=== PATIENT | female | born 1955 | race Caucasian/White ===

== ENCOUNTER 2020-12-09 06:37 | Day surgery (SDC) | payer OTHER ==
[2020-12-06 12:16] LABS: Absolute Lymphocytes (CBC) 1.4 K/uL (0.7-4.9); Basophils % 1.5 % (0-1.3); Hematocrit 37.2 % (36.0-45.0); Lymphocytes % 27.7 % (15.3-44.8); MPV 8.1 fL (7.6-11.3); RBC Red Blood Cell Count 4.09 M/uL (3.86-4.86)
[2020-12-06 12:30] LABS: BUN Blood Urea Nitrogen 18 mg/dL (7-18); Bicarbonate 28 mmol/L (21-32); Glucose Level 98 mg/dL (74-106); Potassium 4.8 mmol/L (3.5-5.1); Sodium Level 137 mmol/L (136-145)
--- NOTE | 2020-12-06 12:47 | RAD REPORT ---
EXAM DESCRIPTION: RAD - Chest Pa And Lat (2 Views) - 12/06/2020 12:41 pm CLINICAL HISTORY: pre op COMPARISON: Chest Single View dated 08/02/2015; CHEST SINGLE VIEW dated 08/09/2014 FINDINGS: No evidence of edema or pneumonia. The heart size is within normal limits.No acute osseous abnormality. Chronic blunting of the right costophrenic angle. Apical scarring. IMPRESSION: No acute cardiopulmonary disease.
--- NOTE | 2020-12-07 16:29 | EKG ---
Test Date: 2020-12-06 Test Time: 11:13:04 Exterior Interior Specialist: TG MEASUREMENT RESULTS: Intervals: Rate: 66 OR: 118 QRSD: 112 QT: 416 QTc: 436 Secretary: P: 19 OR: 118 QRS: -40 T: 183 INTERPRETIVE STATEMENTS: Sinus rhythm with premature supraventricular complexes Left axis deviation Left ventricular hypertrophy with repolarization abnormality Anteroseptal infarct, age undetermined Abnormal ECG Compared to ECG 08/02/2015 23:41:20 Atrial premature complex(es) now present Left ventricular hypertrophy now present Early repolarization now present Atrial fibrillation no longer present Myocardial infarct finding still present Electronically Signed On 12-07-20 16:24:25 CDT by Dominic Brasher
[2020-12-09] MEDS ORDERED: BUPIVACAINE 0.25% PF 10 ML VIAL ONE (07:11)
[2020-12-09] MEDS ORDERED: CIPROFLOXACIN 400mg IV 400 MG/200 ML BAG IV ONE (07:16)
[2020-12-09] MEDS ORDERED: Ringers Lactate 1,000 ML IV ONE (07:16)
[2020-12-09] MEDS ORDERED: BUPIVACAINE 0.5% PF 10 ML VIAL ONE (07:43)
[2020-12-09] MEDS ORDERED: LIDOCAINE 1% MPF 5 ML VIAL ONE (07:45)
[2020-12-09] MEDS ORDERED: MIDAZOLAM HCL 2 MG/2 ML INJ ONE ×3 (07:45→10:27)
[2020-12-09] MEDS ORDERED: FENTANYL CITR 100 MCG/2 ML ONE (07:45)
[2020-12-09] MEDS ORDERED: propofoL 200 MG/20 ML VIAL IV ONE ×2 (07:45→08:03)
[2020-12-09 09:12] VITALS: BP 128/74; TEMP 97; O2SAT 99
[2020-12-09] MEDS ORDERED: TRAMADOL 37.5mg/APAP 325mg PER TAB ONE (09:17)
--- NOTE | 2020-12-09 13:41 | OP ---
Date of Procedure: 12/09/2020 Surgeon: Brandon Ye MD Fundraising Sale Representative: HIRA Parekh. Preoperative Diagnosis: Melanoma in situ, right anterior chest wall. Postoperative Diagnosis: Melanoma in situ, right anterior chest wall. Procedure: Wide excision, right anterior chest wall melanoma in situ, 7 x 3 cm with layered closure. Estimated Blood Loss: Minimal. Specimen: Right anterior chest wall, melanoma in situ. Findings: Closest margin was 8 mm. Anesthesia: MAC. Complications: None. Disposition: The patient tolerated procedure in stable condition, taken to Recovery in good general condition. Operative Note: The patient was brought to the OR and placed in supine position. MAC anesthesia was begun. The patient was prepped and draped in usual sterile fashion. Lidocaine 1% infiltrated local ly. Then, a 15 blade was used to make a 7 x 3 cm incision around this 1 cm pleomorphic reddish lesio n on the anterior chest wall and then subcutaneous tissue was divided. Entire mass was excised and s ent to Pathology for margin check which was negative and closest one was 8 mm. Wound was irrigated. Bleeding was controlled with cautery and then flaps were created. Then 2-0 chromic was used to reap proximate the deep subcutaneous tissue. A 3-0 chromic was used to approximate the subcutaneous tissue and 5-0 nylon was used to close skin. Sterile dressing was applied. The patient was awakened and t aken to Recovery in good general condition. Discharge Note: The patient will go to day surgery and home when stable. Disposition: Home. Condition: Stable. Discharge Instructions: Resume home medications and diet. Activity as tolerated. No heavy lifting. Remove outer dressing in 2 days. Shower. Keep wound clean, dry. Dry gauze to wound daily. Ultra cet 1 tablet p.o. q.4 p.r.n. pain. Follow up in my office 1 week. Call for appointment. /MODL Voice ID: [id number] Report ID: [id number]
== END 2020-12-09 09:10 | disposition home or self-care (01) ==
LOC: OR 06:37
PROVIDERS: ATTEND Surgery
PROC: 0JB60ZZ Excision of Chest Subcutaneous Tissue and Fascia, Open Approach (ICD-10-PCS; principal; 2020-12-09 07:30)
DX: D03.59 Melanoma in situ of other part of trunk (principal); Z20.822 Contact with and (suspected) exposure to COVID-19
CPT/HCPCS: 93005; 85025; 80048; 36415; 88305; 71046; 11606; U0003; J2704 ×2; J2250 ×2; J3010; J7120; J0744

== ENCOUNTER 2021-03-27 12:25 | Inpatient (IN) | payer OTHER ==
--- OUTSIDE RECORDS SUMMARY | 2021-03-27 12:27 | XMS REPORT | Continuity of Care Document ---
:1955 Author Organization [facility] t Address [address] [place] [address] Care Team Providers Name Role Phone Wilfredo-Mbrosieo_A_AH Attending Clinician Unavailable Wilfredo-Mbayo_A_AH Admitting Clinician Unavailable Payers Payer Name Policy Type Policy Number Effective Date Expiration Date S sabrina [facility] [place] - [id number] [id number] [facility] (MEDICARE REPLACEMENT/ADVANT AGE - HMO) Problems This patient has no known problems. Allergies, Adverse Reactions, Alerts Allergy Allergy Status Severity Reaction(s) Onset Inactive Treating Comm ents Source Name Type Date Date Clinician hydrocod DA Active U 2017-04 [facility] one 2- [place] [facility] d [facility] hydrocod DA Active U 2017-04 [facility] one 05-03 [place] 00:[facility]: d [facility] Medications This patient has no known medications. Procedures This patient has no known procedures. Encounters Start End Encounter Admission Attending Care Care Encounter Source Date/Time Date/Time Type Type Clinicians Facility Department ID 2020-08-17 2020-08-17 Outpatient Wilfredo-Mbayo VFP VFP [phone] [facility] 11:30:00 11:30:00 _A_AH [id number] Family Practic e 2019-07-02 2019-07-02 Outpatient Wilfredo-Mbayo VFP VFP [phone] [facility] 11:28:00 11:28:00 _A_ [id number] Family Practic e 2019-07-02 2019-07-02 Outpatient Wilfredo-Mbayo VFP VFP [phone] [facility] 11:28:00 11:28:00 _A_AH [id number] Family Practic e Results Test Description Test Time Test Comments Results Result Sourc e Comments SCR MAMM BILATERAL 2018-10-15 - SCR MAMM BILATERAL AMY CAD DIGITAL 11:15:41 AMY CAD DIGITALBILATERAL DIGITAL SCREENING MAMMOGRAM 3D/2D WITH CAD: 10/13/2018CLINICAL: Asymptomatic. Digital breast tomosynthesis was performed in addition to routine CC and MLO views. Current mammographic images were evaluated by either a Simperium M-Vu or a Webspy ImageThe One-Page CompanyckREVENTIVE CAD (computer aided detection system). Comparison is made to exams dated 07/23/2017 mammogram - [facility], 02/17/2015 mammogram, and 01/24/2015 mammogram - [facility]. There are scattered fibroglandular tissues in both breasts. There are benign calcifications in the left breast. No suspicious mass, architectural distortion, malignant type calcification, or lymph node abnormality detected. Breast architecture is stable compared to prior exams.IMPRESSION: BENIGNThere is no mammographic evidence of malignancy. Resume annual screening mammography in one year. Rosita christensen/penrad:10/15/2018 11:15:41 Passenger Attendant: Daily Quarles , [facility] sent: BIRADS 1-2 Normal Mammogram BI-RADS: 2 Benign SCR MAMM BILATERAL 2018-10-15 AMY CAD DIGITAL 11:15:41 Name: Krissy : 1955 Sex: F - SCR MAMM BILATERAL AMY CAD DIGITALBILATERAL DIGITAL SCREENING MAMMOGRAM 3D/2D WITH CAD: 10/13/2018CLINICAL: Asymptomatic. Digital breast tomosynthesis was performed in addition to routine CC and MLO views. Current mammographic images were evaluated by either a Simperium M-Vu or a Webspy ImageChecker CAD (computer aided detection system). Comparison is made to exams dated 07/23/2017 mammogram - [facility], 02/17/2015 mammogram, and 01/24/2015 mammogram - [facility]. There are scattered fibroglandular tissues in both breasts. There are benign calcifications in the left breast. No suspicious mass, architectural distortion, malignant type calcification, or lymph node abnormality detected. Breast architecture is stable compared to prior exams.IMPRESSION: BENIGNThere is no mammographic evidence of malignancy. Resume annual screening mammography in one year. Rosita christensen/patrick:10/15/2018 11:15:41 Passenger Attendant: Daily Quarles , [facility] sent: BIRADS 1-2 Normal Mammogram BI-RADS: 2 Benign
[2021-03-27] MEDS ORDERED: NA CHLORIDE 0.9% 500 ML ONE ×2 (13:31→15:42)
--- NOTE | 2021-03-27 13:56 | RAD REPORT ---
EXAM DESCRIPTION: RAD - Shoulder Right 2 View - 03/27/2021 1:48 pm CLINICAL HISTORY: PAIN COMPARISON: No comparisons FINDINGS: Comminuted fracture involving the right proximal humerus. The fracture involves the surgic al neck and likely extends to the greater tuberosity. Right AC joint degenerative changes. Surgical c lips in the right upper quadrant. IMPRESSION: Mildly comminuted right proximal humerus fracture.
--- NOTE | 2021-03-27 13:58 | RAD REPORT ---
EXAM DESCRIPTION: RAD - Chest Single View - 03/27/2021 1:36 pm CLINICAL HISTORY: syncope COMPARISON: Chest Pa And Lat (2 Views) dated 12/06/2020; Chest Single View dated 08/02/2015; CHEST SIN GLE VIEW dated 08/09/2014 FINDINGS: Lines: None. Lungs: No evidence of edema or pneumonia. Pleural: No significant pleural effusions or pneumothorax. Cardiac: The heart size is within normal limits. Bones: Right proximal humerus fracture. Other: IMPRESSION: No acute cardiopulmonary disease.
--- NOTE | 2021-03-27 14:03 | RAD REPORT ---
EXAM DESCRIPTION: CT - CTHCSPWOC - 03/27/2021 1:40 pm CLINICAL HISTORY: Trauma, head and neck injury. PAIN COMPARISON: No comparisons TECHNIQUE: Axial 5 mm thick images of the head were obtained. Axial 2 mm thick images of the cervical spine were obtained with sagittal and coronal reconstruction images generated and reviewed. All CT scans are performed using dose optimization technique as appropriate and may include automated exposure control or mA/KV adjustment according to patient size. FINDINGS: CT HEAD WITHOUT CONTRAST: No acute hemorrhage, hydrocephalus or extra-axial collection is identified.No areas of brain edema or midline shift. The paranasal sinuses and mastoids are clear.The calvarium is intact. CT CERVICAL SPINE WITHOUT CONTRAST: No fracture or subluxation.No prevertebral soft tissues swelling is identified. Apical scarring. IMPRESSION: No acute intracranial or cervical spine findings.
[2021-03-27 14:08] LABS: Absolute Lymphocytes (CBC) 0.9 K/uL (0.7-4.9); Basophils % 0.4 % (0-1.3); Hematocrit 41.5 % (36.0-45.0); Lymphocytes % 8.9 % (15.3-44.8); MPV 8.4 fL (7.6-11.3); RBC Red Blood Cell Count 4.46 M/uL (3.86-4.86)
[2021-03-27 15:08] LABS: Protime INR 0.98
[2021-03-27 15:32] LABS: ALT/SGPT 98 U/L (12-78); AST/SGOT 65 U/L (15-37); Albumin 3.9 g/dL (3.4-5.0); Alkaline Phosphatase 78 U/L (45-117); BUN Blood Urea Nitrogen 34 mg/dL (7-18); Bicarbonate 25 mmol/L (21-32); Bilirubin Direct 0.2 mg/dL (0-0.2); Glucose Level 108 mg/dL (74-106); Magnesium 2.1 mg/dL (1.8-2.4); NT PRO-BNP 47 pg/mL (<125); Potassium 4.2 mmol/L (3.5-5.1); Protein, Total 7.8 g/dL (6.4-8.2); Sodium Level 141 mmol/L (136-145); Troponin (Emerg Dept Use Only) < 0.02 ng/mL (0.0-0.045)
[2021-03-27] MEDS ORDERED: ASPIRIN 81 MG CHEWABLE TABLET ONE (15:41)
[2021-03-27] MEDS ORDERED: CLOPIDOGREL 75 MG TABLET ONE (15:42)
[2021-03-27] MEDS ORDERED: FOLIC ACID 5 MG/ML VIAL ONE (15:43)
--- NOTE | 2021-03-27 16:19 | EDPHYS ---
Physician Documentation [facility] Name: Krissy Weller Age: 66 yrs Sex: Female : 1955 Arrival Date: 03/27/2021 Time: 12:26 Bed 8 Private MD: ED Physician Jordan Prado HPI: 03/27 15:23 This 66 yrs old Female presents to ER via Wheelchair with complaints of juan antonio Numbness, Syncope, Shoulder Injury. 15:23 The patient's problem is reported as paresthesias, in right upper extremity, in right juan antonio lower extremity. Onset: The symptoms/episode began/occurred at 10:00. Duration: The episode is continuous. Context: the episode(s) was witnessed, by no one, symptoms became apparent at 10:00. The symptoms are alleviated by nothing. The symptoms are aggravated by nothing. Associated signs and symptoms: The patient has no apparent associated signs or symptoms. Severity of symptoms: At their worst the symptoms were mild moderate in the emergency department the symptoms are unchanged. Patient's baseline: Neuro: alert and fully oriented. The patient has not experienced similar symptoms in the past. Historical: - Allergies: 12:40 HYDROCODONE; vg1 12:40 Codeine; vg1 - PMHx: 12:40 gastritis; Pancreatitis; vg1 - PSHx: 12:40 Appendectomy; Cholecystectomy; vg1 - Immunization history:: Client reports receiving the 2nd dose of the Covid vaccine. - Social history:: Smoking status: Patient denies any tobacco usage or history of. - Family history:: not pertinent. ROS: 15:23 Constitutional: Negative for fever, chills, and weight loss, Eyes: Negative for injury, juan antonio pain, redness, and discharge, ENT: Negative for injury, pain, and discharge, Neck: Negative for injury, pain, and swelling, Cardiovascular: Negative for chest pain, palpitations, and edema, Respiratory: Negative for shortness of breath, cough, wheezing, and pleuritic chest pain, Abdomen/GI: Negative for abdominal pain, nausea, vomiting, diarrhea, and constipation, Back: Negative for injury and pain, : Negative for injury, bleeding, discharge, and swelling, MS/Extremity: Negative for injury and deformity, Skin: Negative for injury, rash, and discoloration, Psych: Negative for depression, anxiety, suicide ideation, homicidal ideation, and hallucinations, Allergy/Immunology: Negative for hives, rash, and allergies, Endocrine: Negative for neck swelling, polydipsia, polyuria, polyphagia, and marked weight changes. 15:23 MS/extremity: Positive for decreased range of motion, pain, swelling, of the anterior aspect of right shoulder and posterior aspect of right shoulder. 15:23 Neuro: Positive for numbness, of the right arm and right leg. Exam: 15:23 Radiologist reports: negative juan antonio 15:23 Constitutional: This is a well developed, well nourished patient who is awake, alert, and in no acute distress. Head/Face: Normocephalic, atraumatic. Eyes: Pupils equal round and reactive to light, extra-ocular motions intact. Lids and lashes normal. Conjunctiva and sclera are non-icteric and not injected. Cornea within normal limits. Periorbital areas with no swelling, redness, or edema. ENT: Nares patent. No nasal discharge, no septal abnormalities noted. Tympanic membranes are normal and external auditory canals are clear. Oropharynx with no redness, swelling, or masses, exudates, or evidence of obstruction, uvula midline. Mucous membranes moist. Neck: Trachea midline, no thyromegaly or masses palpated, and no cervical lymphadenopathy. Supple, full range of motion without nuchal rigidity, or vertebral point tenderness. No Meningismus. Chest/axilla: Normal chest wall appearance and motion. Nontender with no deformity. No lesions are appreciated. Cardiovascular: Regular rate and rhythm with a normal S1 and S2. No gallops, murmurs, or rubs. Normal PMI, no JVD. No pulse deficits. Respiratory: Lungs have equal breath sounds bilaterally, clear to auscultation and percussion. No rales, rhonchi or wheezes noted. No increased work of breathing, no retractions or nasal flaring. Abdomen/GI: Soft, non-tender, with normal bowel sounds. No distension or tympany. No guarding or rebound. No evidence of tenderness throughout. Back: No spinal tenderness. No costovertebral tenderness. Full range of motion. Skin: Warm, dry with normal turgor. Normal color with no rashes, no lesions, and no evidence of cellulitis. Psych: Awake, alert, with orientation to person, place and time. Behavior, mood, and affect are within normal limits. 15:23 Musculoskeletal/extremity: ROM: limited active range of motion due to pain, limited passive range of motion due to pain, Circulation is intact in all extremities. Sensation intact. Compartment Syndrome exam of affected extremity: is normal. DVT Exam: no pain, no swelling, no tenderness, negative Homans' sign noted on exam, no appreciated bluish discoloration, no erythema, no increased warmth. 16:21 ECG was reviewed by the Attending Physician. [facility] Vital Signs: 12:31 BP 107 / 73; Pulse 115; Resp 16; Temp 97.0; Pulse Ox 100% ; Weight 70.31 kg; Height 5 vg1 ft. 3 in. (160.02 cm); Pain 8/10; 13:28 Pulse 106; Resp 16; Pulse Ox 97% on R/A; ll1 15:00 BP 123 / 81; Pulse 100; Resp 18; Pulse Ox 100% ; ll1 17:01 Pulse 99; Resp 16; Pulse Ox 100% ; ll1 18:37 BP 118 / 72; Pulse 78; Resp 20; Pulse Ox 97% on R/A; ll1 19:00 BP 118 / 72; Pulse 78; Resp 20; Pulse Ox 100% ; ll1 12:31 Body Mass Index 27.46 (70.31 kg, 160.02 cm) vg1 NIH Stroke Scale Scores: 18:45 NIHSS Score: 2 juan antonio Hallett Coma Score: 18:45 Eye Response: spontaneous(4). Verbal Response: oriented(5). Motor Response: obeys [facility] commands(6). Total: 15. MDM: 13:26 Patient medically screened. [facility] 15:38 Differential diagnosis: CVA, TIA, paralysis. Data reviewed: vital signs, nurses notes, [facility] lab test result(s), EKG, radiologic studies, CT scan, MRI, plain films. Data interpreted: youth nutritional monitor: rate is 106 beats/min, rhythm is regular, Pulse oximetry: on room air is 99 %. Test interpretation: by ED physician or midlevel provider: ECG, plain radiologic studies. Counseling: I had a detailed discussion with the patient and/or guardian regarding: the historical points, exam findings, and any diagnostic results supporting the discharge/admit diagnosis, lab results, radiology results, the need for further work-up and treatment in the hospital. 16:12 ED course: dr loli, no tpa, get cta head and neck, give keppra. juan antonio 18:47 Physician consultation: Jake Joseph MD and will see patient in inpatient room, not juan antonio a tpa candidate, cta folow up , if negative asprin plavix. 12 13:04 Order name: Basic Metabolic Panel 03/27 13:04 Order name: CBC with Diff 03/27 13:04 Order name: LFT's; Complete Time: 15:36 03/27 13:04 Order name: Magnesium; Complete Time: 15:36 03/27 13:04 Order name: NT PRO-BNP; Complete Time: 15:36 03/27 13:04 Order name: PT-INR; Complete Time: 15:13 03/27 13:04 Order name: Troponin (emerg Dept Use Only); Complete Time: 15:36 03/27 13:04 Order name: XRAY Chest (1 view); Complete Time: 14:30 03/27 13:05 Order name: Basic Metabolic Panel; Complete Time: 15:36 EDMS 03/27 13:05 Order name: CBC with Automated Diff; Complete Time: 14:30 EDMS 03/27 13:27 Order name: Shoulder Right (2 View) XRAY; Complete Time: 14:30 [facility] 03/27 13:27 Order name: CT Head C Spine; Complete Time: 14:30 [facility] 03/27 16:15 Order name: SARS-COV-2 RT PCR (Document "Date of Onset" if Symptomatic); Complete Time: [facility] 18:57 03/27 13:04 Order name: EKG; Complete Time: 13:05 03/27 13:04 Order name: Cardiac monitoring; Complete Time: 13:14 03/27 13:04 Order name: EKG - Nurse/Tech; Complete Time: 13:14 03/27 13:04 Order name: IV Saline Lock; Complete Time: 13:14 03/27 13:04 Order name: Labs collected and sent; Complete Time: 13:14 03/27 15:37 Order name: CT Head Angio; Complete Time: 18:57 [facility] 03/27 15:37 Order name: CT Neck Angio; Complete Time: 18:57 [facility] 03/27 16:14 Order name: Brain Wo Cont; Complete Time: 18:57 EDMI 03/27 13:04 Order name: O2 Per Protocol; Complete Time: 13:14 iw 03/27 13:04 Order name: O2 Sat Monitoring; Complete Time: 13:14 iw 03/27 15:36 Order name: Shoulder Immobilizer; Complete Time: 17:01 juan antonio EC:21 Rate is 98 beats/min. Rhythm is regular. QRS [place] is Normal. UT interval is normal. QRS juan antonio interval is normal. QT interval is normal. No Q waves. T waves are Normal. No ST changes noted. Clinical impression: NSR w/ Non-specific ST/T Changes and No evidence of ischemia. Interpreted by me. Reviewed by me. Administered Medications: 15:08 Drug: NS 0.9% 500 ml Route: IV; Rate: bolus; Site: left forearm; ll1 17:00 Follow up: Response: No adverse reaction; IV Status: Completed infusion; IV Intake: ll1 500ml 17:00 Drug: NS 0.9% 500 ml Route: IV; Rate: bolus; Site: left antecubital; ll1 18:38 Follow up: Response: No adverse reaction; IV Status: Completed infusion; IV Intake: ll1 500ml 17:00 Drug: foLIC Acid 1 mg Route: IVPB; Site: left antecubital; ll1 18:38 Follow up: Response: No adverse reaction; IV Status: Completed infusion; IV Intake: ll1 0.2ml 17:00 Drug: Aspirin Chewable Tablet 162 mg Route: PO; ll1 18:39 Follow up: Response: No adverse reaction ll1 17:00 Drug: PlaVIX (clopidogrel) 75 mg Route: PO; ll1 18:39 Follow up: Response: No adverse reaction ll1 17:10 Drug: Keppra (levETIRAcetam) 1000 mg Route: IV; Rate: per protocol; Site: left ll1 antecubital; 17:33 Follow up: Response: No adverse reaction; IV Status: Completed infusion; IV Intake: ll1 100ml 19:23 Drug: fentaNYL (PF) 50 mcg Route: IVP; Site: left forearm; as6 19:23 Drug: Zofran (Ondansetron) 4 mg Route: IVP; Site: left forearm; as6 Point of Care Testin:04 with blood work ll1 Ranges: Critical Glucose Levels:Adult <50 mg/dl or >400 mg/dl <40 mg/dl or >180 mg/dl Disposition Summary: 03/27/21 16:19 Hospitalization Ordered Hospitalization Status: Inpatient Admission juan antonio Provider: Trell Hitchcock cha Location: Telemetry/MedSurg (Inpatient) juan antonio Condition: Stable juan antonio Problem: new juan antonio Symptoms: have improved juan antonio Bed/Room Type: Standard juan antonio Room Assignment: 429(03/27/21 19:38) cg Diagnosis - Fall on same level, unspecified - syncope/seizure juan antonio - 2-part displaced fracture of surgical neck of right humerus juan antonio Forms: - Medication Reconciliation Form juan antonio - SBAR form juan antonio NIH Stroke Scale - NIH Stroke Score Date: 03/27/2021 Time: 18:45 Total Score = 2 1a. Level of Consciousness (LOC) - 0(Alert) 1b. Level of Consciousness (LOC) (Month \\T\\ Age) - 0(Both) 1c. LOC Commands (Open \\T\\ Closes Eyes/Arc Cutter Plasma Arc) - 0(Both) 2. Best Gaze (Lateral Gaze Paresis) - 0(Normal) 3. Visual Field Loss - 0(No visual loss) 4. Facial Palsy - 0(Normal) 5a. Left Arm: Motor (10-second hold) - 0(No drift) 5b. Right Arm: Motor (10-second hold) - 0(No drift) 6a. Left Leg: Motor (5-second hold - always test supine) - 0(No drift) 6b. Right Leg: Motor (5-second hold - always test supine) - 1(Drift) 7. Limb Ataxia (finger/nose \\T\\ heel/sanon - test with eyes open) - 0(Absent) 8. Sensory Loss (pinprick arms/legs/face) - 1(Mild to moderate loss) 9. Best Language: Aphasia (description/naming/reading) - 0(No aphasia) 10. Dysarthria (speech clarity - read or repeat words) - 0(Normal) 11. Extinction and Inattention (visual/tactile/auditory/spatial/personal) - 0(No abnormality) Initials: juan antonio Signatures: Dispatcher [employer] EDJordan Leone MD MD cha Williams, Irene, RN RN iw Garcia, Cindy, RN RN cg Garcia, Victoria, RN RN vg1 Bryan Cool RN RN ll1 Davin Jerez RN RN as6 Corrections: (The following items were deleted from the chart) 16:14 15:36 MR STROKE PROTOCOL+MRI.LOKI.ARNULFO ordered. EDMS EDMS 19:38 16:19 juan antonio kang
--- NOTE | 2021-03-27 16:19 | ER ---
Nurse's Notes [facility] Name: Krissy Weller Age: 66 yrs Sex: Female : 1955 Arrival Date: 03/27/2021 Time: 12:26 Bed 8 Private MD: Diagnosis: Fall on same level, unspecified-syncope/seizure;2-part displaced fracture of surgical neck of right humerus Presentation: 03/27 12:31 Chief complaint: Patient states: pt states "I walked to the kitchen and my right side vg1 felt numb and cold and I turned around and that's the last thing i remembered, then i found myself on the floor and wriggled my way to the front door" Pt states started to kick the front door when a neighbor heard and helped her up. States Right shoulder pain, unsure if hit head. Incident occurred around 1000 today. Coronavirus screen: Vaccine status: Patient reports receiving the 2nd dose of the covid vaccine. Ebola Screen: Patient negative for fever greater than or equal to 101.5 degrees Fahrenheit, and additional compatible Ebola Virus Disease symptoms. Initial Sepsis Screen: Does the patient meet any 2 criteria? No. Patient's initial sepsis screen is negative. Does the patient have a suspected source of infection? No. Patient's initial sepsis screen is negative. Risk Assessment: Do you want to hurt yourself or someone else? Patient reports no desire to harm self or others. Onset of symptoms was March 27, 2021 at 10:00. 12:31 Method Of Arrival: Wheelchair vg1 12:31 Acuity: RAIZA 3 vg1 Triage Assessment: 12:40 General: Appears in no apparent distress. uncomfortable, Behavior is calm, cooperative. vg1 Pain: Complains of pain in Right shoulder. Neuro: Level of Consciousness is awake, alert, obeys commands, Oriented to person, place, time, situation, Speech is normal, Facial symmetry appears normal, Reports headache. Historical: - Allergies: 12:40 HYDROCODONE; vg1 12:40 Codeine; vg1 - PMHx: 12:40 gastritis; Pancreatitis; vg1 - PSHx: 12:40 Appendectomy; Cholecystectomy; vg1 - Immunization history:: Client reports receiving the 2nd dose of the Covid vaccine. - Social history:: Smoking status: Patient denies any tobacco usage or history of. - Family history:: not pertinent. Screenin:48 Abuse screen: Denies threats or abuse. Nutritional screening: No deficits noted. ll1 Tuberculosis screening: No symptoms or risk factors identified. Fall Risk Fall in past 12 months (25 points). IV access (20 points). Gait- Weak (10 pts.). Total [place] Fall Scale indicates High Risk Score (45 or more points). Fall prevention measures have been instituted. Side Rails Up X 2 Placed Close to Nursing Station Frequent Obs/Assessments Occuring Family Present and informed to notify staff if the need to leave the bedside As available patient and family educated on Fall Prevention Program and Strategies. Assessment: 13:40 Reassessment: No changes from previously documented assessment. Patient and/or family ll1 updated on plan of care and expected duration. Pain level reassessed. Patient is alert, oriented x 3, equal unlabored respirations, skin warm/dry/pink. Neuro: Level of Consciousness is awake, alert, obeys commands, Oriented to person, place, time, situation, Appropriate for age Crossing Watchman are equal bilaterally Moves all extremities. Full function Speech is normal, Facial symmetry appears normal, Reports dizziness, headache. Cardiovascular: Heart tones S1 S2 Capillary refill < 3 seconds Clubbing of nail beds is absent JVD is absent Patient's skin is warm and dry. Rhythm is sinus tachycardia. Musculoskeletal: Circulation, motion, and sensation intact. Capillary refill < 3 seconds, Range of motion: limited in R shoulder. 14:40 Reassessment: No changes from previously documented assessment. Patient and/or family ll1 updated on plan of care and expected duration. Pain level reassessed. Patient is alert, oriented x 3, equal unlabored respirations, skin warm/dry/pink. 15:40 Reassessment: to CT and MRI via stretcher.. ll1 17:00 Reassessment: No changes from previously documented assessment. Patient and/or family ll1 updated on plan of care and expected duration. Pain level reassessed. Patient is alert, oriented x 3, equal unlabored respirations, skin warm/dry/pink. Back from MRI. 17:18 Musculoskeletal: Circulation, motion, and sensation intact. Capillary refill < 3 ll1 seconds, Range of motion: limited in R shoulder. 18:00 Reassessment: No changes from previously documented assessment. Patient and/or family ll1 updated on plan of care and expected duration. Pain level reassessed. Patient is alert, oriented x 3, equal unlabored respirations, skin warm/dry/pink. 19:00 Reassessment: No changes from previously documented assessment. Patient and/or family ll1 updated on plan of care and expected duration. Pain level reassessed. Patient is alert, oriented x 3, equal unlabored respirations, skin warm/dry/pink. 19:24 Reassessment: Patient and/or family updated on plan of care and expected duration. Pain as6 level reassessed. Patient is alert, oriented x 3, equal unlabored respirations, skin warm/dry/pink. General: Behavior is calm. Pain: Complains of pain in posterior aspect of right shoulder and anterior aspect of right shoulder Pain radiates to right arm Quality of pain is described as sharp. Vital Signs: 12:31 BP 107 / 73; Pulse 115; Resp 16; Temp 97.0; Pulse Ox 100% ; Weight 70.31 kg; Height 5 vg1 ft. 3 in. (160.02 cm); Pain 8/10; 13:28 Pulse 106; Resp 16; Pulse Ox 97% on R/A; ll1 15:00 BP 123 / 81; Pulse 100; Resp 18; Pulse Ox 100% ; ll1 17:01 Pulse 99; Resp 16; Pulse Ox 100% ; ll1 18:37 BP 118 / 72; Pulse 78; Resp 20; Pulse Ox 97% on R/A; ll1 19:00 BP 118 / 72; Pulse 78; Resp 20; Pulse Ox 100% ; ll1 12:31 Body Mass Index 27.46 (70.31 kg, 160.02 cm) vg1 Yury Coma Score: 18:45 Eye Response: spontaneous(4). Verbal Response: oriented(5). Motor Response: obeys [facility] commands(6). Total: 15. NIH Stroke Scale Scores: 18:45 NIHSS Score: 2 juan antonio ED Course: 12:26 Patient arrived in ED. am2 12:40 Triage completed. vg1 12:40 Arm band placed on. vg1 12:47 Bryan Cool, RN is Primary Nurse. ll1 12:48 Patient placed in an exam room, on a stretcher. ll1 12:48 Patient has correct armband on for positive identification. Bed in low position. Call ll1 light in reach. Side rails up X 1. manager monitoring on. Pulse ox on. NIBP on. 13:25 Jordan Prado MD is Attending Physician. juan antonio 13:25 Missed attempt(s): 22 gauge in left antecubital area. Bleeding controlled, band aid ll1 applied, catheter tip intact. 13:36 XRAY Chest (1 view) In Process Unspecified. EDMS 13:40 CT Head C Spine In Process Unspecified. EDMS 13:48 Shoulder Right (2 View) XRAY In Process Unspecified. EDMS 14:00 Inserted saline lock: 22 gauge in left forearm, using aseptic technique. Blood iw collected. 15:56 CT Head Angio In Process Unspecified. EDMS 15:56 CT Neck Angio In Process Unspecified. EDMS 16:16 Trell Hitchcock DO is Hospitalizing Provider. [facility] 16:43 Brain Wo Cont In Process Unspecified. EDMS 17:15 Shoulder immobilizer applied on right shoulder. ll1 Administered Medications: 15:08 Drug: NS 0.9% 500 ml Route: IV; Rate: bolus; Site: left forearm; ll1 17:00 Follow up: Response: No adverse reaction; IV Status: Completed infusion; IV Intake: ll1 500ml 17:00 Drug: NS 0.9% 500 ml Route: IV; Rate: bolus; Site: left antecubital; ll1 18:38 Follow up: Response: No adverse reaction; IV Status: Completed infusion; IV Intake: ll1 500ml 17:00 Drug: foLIC Acid 1 mg Route: IVPB; Site: left antecubital; ll1 18:38 Follow up: Response: No adverse reaction; IV Status: Completed infusion; IV Intake: ll1 0.2ml 17:00 Drug: Aspirin Chewable Tablet 162 mg Route: PO; ll1 18:39 Follow up: Response: No adverse reaction ll1 17:00 Drug: PlaVIX (clopidogrel) 75 mg Route: PO; ll1 18:39 Follow up: Response: No adverse reaction ll1 17:10 Drug: Keppra (levETIRAcetam) 1000 mg Route: IV; Rate: per protocol; Site: left ll1 antecubital; 17:33 Follow up: Response: No adverse reaction; IV Status: Completed infusion; IV Intake: ll1 100ml 19:23 Drug: fentaNYL (PF) 50 mcg Route: IVP; Site: left forearm; as6 19:23 Drug: Zofran (Ondansetron) 4 mg Route: IVP; Site: left forearm; as6 Point of Care Testin:04 with blood work ll1 Ranges: Intake: 17:00 IV: 500ml; Total: 500ml. ll1 17:33 IV: 100ml; Total: 600ml. ll1 18:38 IV: 500ml; Total: 1100ml. ll1 18:38 IV: 0ml; Total: 1100ml. ll1 Outcome: 16:19 Decision to Hospitalize by Provider. juan antonio 21:10 Patient left the ED. lp1 NIH Stroke Scale - NIH Stroke Score Date: 03/27/2021 Time: 18:45 Total Score = 2 1a. Level of Consciousness (LOC) - 0(Alert) 1b. Level of Consciousness (LOC) (Month \\T\\ Age) - 0(Both) 1c. LOC Commands (Open \\T\\ Closes Eyes/Product Marketing Coordinator) - 0(Both) 2. Best Gaze (Lateral Gaze Paresis) - 0(Normal) 3. Visual Field Loss - 0(No visual loss) 4. Facial Palsy - 0(Normal) 5a. Left Arm: Motor (10-second hold) - 0(No drift) 5b. Right Arm: Motor (10-second hold) - 0(No drift) 6a. Left Leg: Motor (5-second hold - always test supine) - 0(No drift) 6b. Right Leg: Motor (5-second hold - always test supine) - 1(Drift) 7. Limb Ataxia (finger/nose \\T\\ heel/sanon - test with eyes open) - 0(Absent) 8. Sensory Loss (pinprick arms/legs/face) - 1(Mild to moderate loss) 9. Best Language: Aphasia (description/naming/reading) - 0(No aphasia) 10. Dysarthria (speech clarity - read or repeat words) - 0(Normal) 11. Extinction and Inattention (visual/tactile/auditory/spatial/personal) - 0(No abnormality) Initials: juan antonio Signatures: Dispatcher [employer] EDJordan Leone MD MD cha Williams, Irene, RN RN iw Daily Paiz RN RN lp1 Paola Briscoe am2 Eun Campos RN RN vg1 Bryan Cool RN RN ll1 Davin Jerez, RN RN as6
[2021-03-27] MEDS ORDERED: levETIRAcetam 1,000 MG in NA CHLORIDE 0.9% 100 ML IV ONE (16:30)
--- NOTE | 2021-03-27 16:34 | RAD REPORT ---
EXAM DESCRIPTION: CT - Neck Angio - 03/27/2021 3:56 pm CLINICAL HISTORY: NUMBNESS COMPARISON: Head C Spine Mpr Wo Con dated 03/27/2021 TECHNIQUE: CT angiography of the neck vessels was performed with MIPs. All CT scans are performed using dose optimization technique as appropriate and may include automated exposure control or mA/KV adjustment according to patient size. FINDINGS: No significant flow abnormality is seen of the common carotid bilaterally. No significant stenosis is identified involving the cervical segments of both internal carotid arteri es. Normal flow is seen within both vertebral arteries. Venous contamination limits evaluation of the upp er portion of the cervical vertebral arteries. IMPRESSION: No significant flow abnormality of the neck vessels is identified. Note that the distal cervical portions of the vertebral artery is are obscured by streak artifact from the rather signific ant venous contamination.
--- NOTE | 2021-03-27 16:35 | RAD REPORT ---
EXAM DESCRIPTION: CT - Head angio - 03/27/2021 3:56 pm CLINICAL HISTORY: DIZZINESS COMPARISON: No comparisons TECHNIQUE: CT angiography of the head was performed with MIPs. All CT scans are performed using dose optimization technique as appropriate and may include automated exposure control or mA/KV adjustment according to patient size. FINDINGS: Anterior circulation: No aneurysm or large vessel occlusion. No hemodynamically significant stenosis. No arteriovenous malf ormation identified. Posterior circulation: No aneurysm or large vessel occlusion. No hemodynamically significant stenosis. No arteriovenous malf ormation identified. IMPRESSION: No significant flow abnormality is detected.
--- NOTE | 2021-03-27 16:55 | RAD REPORT ---
EXAM DESCRIPTION: MRI - Brain Wo Cont - 03/27/2021 4:43 pm CLINICAL HISTORY: HEMIPLEGIA COMPARISON: No comparisons TECHNIQUE: Sagittal T1-weighted images were obtained along with PD/heavily T2-weighted and T2-FLAIR images. Axial DWI and ADC mapping sequences were also obtained along with coronal heavily T2-weighted images were obtained. FINDINGS: No intracranial hemorrhage, mass or acute infarction. There is no edema or shift of midlin e structures. No extra-axial fluid collections. Signal voids are seen as a normal finding in the pedro r intracranial vessels. No significant white matter disease. Mastoid air cells and paranasal sinuses are clear. IMPRESSION: No acute intracranial abnormality. No evidence of acute infarct.
--- NOTE | 2021-03-27 17:29 | P.HP ---
Patient History Date of Service: 03/27/21 Primary Care Provider: Dr. Santos Reason for admission: Syncope, fall History of Present Illness: 66-year-old female reported headache this morning. Patient reports headaches at times. Patient had pain to the frontal area. She rated the pain about a 7 out of 10. She took some Tylenol and went to bed. When she got up around 10 AM she had to the kitchen for food. At which point the patient blacked out. She was on the ground for over 2 hours. She does not recall the events during this time period. She was brought into the ER for further evaluation. In the ER patient appears stable. Vital signs stable. CT head neck unremarkable. Chest x-ray unremarkable. X-ray of shoulder showed right proximal humerus fracture. Subsequent MRI without contrast of the head showed no acute CVA. Patient was started on IV Keppra. Patient admitted for treatment. Patient with history of melanoma, depression with anxiety and neuropathy. Patient reports no history of CVA or seizure. Allergies Cephalosporins Allergy (Verified 12/09/20 07:31) Anaphylaxis codeine Allergy (Verified 12/06/20 13:25) Nausea/Vomiting HYDROCODONE Allergy (Uncoded 12/06/20 13:25) Nausea/Vomiting Home medications list reviewed: Yes Home Medications: NK [No Home Meds] 12/06/20 - Past Medical/Surgical History Diabetic: No -: Pancreatitis -: Depression with anxiety -: Neuropathy -: Melanoma to the chest melanoma to the chest -: gall bladder -: bowel blockage -: pseudocyst of the pancreas -: Rt ear sx bone graph placed -: rt knee sx -: appendix sx Psychosocial/ Personal History: Patient lives at home - Family History Family History: Reviewed- Non-Contributory - Social History Smoking Status: Never smoker Alcohol use: No CD- Drugs: No Caffeine use: Yes Place of Residence: Home Review of Systems General: As per HPI Eyes: Unremarkable ENT: Unremarkable Respiratory: Unremarkable Cardiovascular: Unremarkable Gastrointestinal: Unremarkable Genitourinary: Unremarkable Musculoskeletal: As per HPI Integumentary: Unremarkable Neurological: Weakness, Numbness, As per HPI Lymphatics: Unremarkable Physical Examination - Studies Laboratory Data (last 24 hrs) 03/27/21 14:56: PT 11.3, INR 0.98 03/27/21 14:56: Sodium 141, Potassium 4.2, BUN 34 H, Creatinine 0.59, Glucose 108 H, Magnesium 2.1, Total Bilirubin 1.0, AST 65 H, ALT 98 H, Alkaline Phosphatase 78 03/27/21 14:00: WBC 10.60, Hgb 14.3, Hct 41.5, Plt Count 178 Assessment and Plan - Plan COVID: Pending CT head: COMPARISON: No comparisons TECHNIQUE: Axial 5 mm thick images of the head were obtained. Axial 2 mm thick images of the cervical spine were obtained with sagittal and coronal reconstruction images generated and reviewed. All CT scans are performed using dose optimization technique as appropriate and may include automated exposure control or mA/KV adjustment according to patient size. FINDINGS: CT HEAD WITHOUT CONTRAST: No acute hemorrhage, hydrocephalus or extra-axial collection is identified.No areas of brain edema or midline shift. The paranasal sinuses and mastoids are clear.The calvarium is intact. CT CERVICAL SPINE WITHOUT CONTRAST: No fracture or subluxation.No prevertebral soft tissues swelling is identified. Apical scarring. IMPRESSION: No acute intracranial or cervical spine findings. CTA head: COMPARISON: No comparisons TECHNIQUE: CT angiography of the head was performed with MIPs. All CT scans are performed using dose optimization technique as appropriate and may include automated exposure control or mA/KV adjustment according to patient size. FINDINGS: Anterior circulation: No aneurysm or large vessel occlusion. No hemodynamically significant stenosis. No arteriovenous malformation identified. Posterior circulation: No aneurysm or large vessel occlusion. No hemodynamically significant stenosis. No arteriovenous malformation identified. IMPRESSION: No significant flow abnormality is detected. CTA neck: COMPARISON: Head C Spine Mpr Wo Con dated 03/27/2021 TECHNIQUE: CT angiography of the neck vessels was performed with MIPs. All CT scans are performed using dose optimization technique as appropriate and may include automated exposure control or mA/KV adjustment according to patient size. FINDINGS: No significant flow abnormality is seen of the common carotid bilaterally. No significant stenosis is identified involving the cervical segments of both internal carotid arteries. Normal flow is seen within both vertebral arteries. Venous contamination limits evaluation of the upper portion of the cervical vertebral arteries. IMPRESSION: No significant flow abnormality of the neck vessels is identified. Note that the distal cervical portions of the vertebral artery is are obscured by streak artifact from the rather significant venous contamination. MRI without contrast head: COMPARISON: No comparisons TECHNIQUE: Sagittal T1-weighted images were obtained along with PD/heavily T2- weighted and T2-FLAIR images. Axial DWI and ADC mapping sequences were also obtained along with coronal heavily T2-weighted images were obtained. FINDINGS: No intracranial hemorrhage, mass or acute infarction. There is no edema or shift of midline structures. No extra-axial fluid collections. Signal voids are seen as a normal finding in the major intracranial vessels. No significant white matter disease. Mastoid air cells and paranasal sinuses are clear. IMPRESSION: No acute intracranial abnormality. No evidence of acute infarct. Shoulder x-ray: COMPARISON: No comparisons FINDINGS: Comminuted fracture involving the right proximal humerus. The fracture involves the surgical neck and likely extends to the greater tuberosity. Right AC joint degenerative changes. Surgical clips in the right upper quadrant. IMPRESSION: Mildly comminuted right proximal humerus fracture. Physical Exam: GENERAL: The patient is a well-developed, well-nourished, in no apparent distress. Alert and oriented x3. VITAL SIGNS: Reviewed HEENT: Head is normocephalic and atraumatic. Extraocular muscles are intact. Pupils are equal, round, and reactive to light and accommodation. Nares appeared normal. Mouth is well hydrated and without lesions. Mucous membranes are moist. NECK: Supple. No carotid bruits. No lymphadenopathy or thyromegaly. LUNGS: Clear to auscultation. No crackles or wheezes are heard. HEART: Regular rate and rhythm, no appreciable gallops, rubs, murmurs or extra heart sounds ABDOMEN: Soft, nontender, and nondistended. Positive bowel sounds. No hepatosplenomegaly was noted. EXTREMITIES: Patient with weakness to the right upper and lower extremity. Some swelling to the right shoulder. Difficulty with movement of the right and lower extremity. NEUROLOGIC: Some pain to the right shoulder. As above SKIN: Normal color, turgor and temperature. No ulcerations or rashes noted. Impression: Syncope likely secondary to seizure Right-sided weakness likely related to above Fall leading to mildly comminuted right proximal humerus fracture Depression with anxiety History of melanoma Neuropathy Elevated liver function Plan: Syncope likely secondary to seizure: Case discussed with neurology. Patient likely had seizure. Continue IV Keppra. Will monitor for falls. Fall precaution in place. Will monitor for seizure. Seizure precaution in place. MRI without contrast negative. Will need to obtain stroke protocol MRI to further evaluate. We will also obtain echocardiogram, carotid Doppler, and EEG. Physical therapy and Occupational Therapy to evaluate. Await further commendations from neurology. Possible home as early as tomorrow with home health versus rehab. Await recommendations by physical therapy. Continue aspirin, folic acid. Will monitor lab closely. Right-sided weakness likely related to above: This may be related to her seizure and fall. Continue with physical therapy recommendations. Will discuss further with neurology. Will obtain stroke protocol MRI to further evaluate. Fall leading to mildly comminuted right proximal humerus fracture: Shoulder immobilizer to be started. Will consult orthopedics for further recommendation. Depression with anxiety: Restart Paxil History of melanoma: Patient with recent history of melanoma removed from the chest. Neuropathy: Continue Elavil. Elevated liver function: We will check hepatitis panel. Will monitor lab closely. Code Status: Full Code DVT prophylaxis: Lovenox Advanced Care Planning-30 minutes: Anticipate home at discharge Discharge Plan: Home Plan to discharge in: 24 Hours - Advance Directives Does patient have a Living Will: No Does patient have a Durable POA for Healthcare: No - Code Status/Comfort Care Code Status Assessed: Yes (Full code) Time Spent Managing Pts Care (In Minutes): 55
[2021-03-27] MEDS ORDERED: ONDANSETRON 4 MG/2 ML VIAL ONE (19:18)
[2021-03-27] MEDS ORDERED: FENTANYL CITR 100 MCG/2 ML ONE (19:18)
[2021-03-27] MEDS ORDERED: ONDANSETRON 4 MG/2 ML VIAL IV PRN (20:16)
[2021-03-27] MEDS ORDERED: ACETAMINOPHEN 500 MG TAB PO PRN (20:16)
[2021-03-27 21:45] LABS: Creatine Phosphokinase 44 U/L (26-192); Troponin I < 0.02 ng/mL (0.0-0.045)
[2021-03-27 22:02] LABS: CKMB Creatine Kinase MB < 1.0 ng/mL (1.0-3.6)
[2021-03-27] MEDS: levETIRAcetam 500 MG in NA CHLORIDE 0.9% 100 ML IV SCH (23:07)
[2021-03-27] MEDS: AMITRIPTYLINE 50 MG TAB PO SCH (23:37)
[2021-03-27] MEDS: MORPHINE 2 MG/ML SYR IV PRN (23:37)
[2021-03-28 00:22] VITALS: BMI 27.4
[2021-03-28 03:39] LABS: Absolute Lymphocytes (CBC) 1.2 K/uL (0.7-4.9); Basophils % 0.4 % (0-1.3); Hematocrit 34.9 % (36.0-45.0); Lymphocytes % 20.8 % (15.3-44.8); MPV 8.3 fL (7.6-11.3); RBC Red Blood Cell Count 3.74 M/uL (3.86-4.86)
[2021-03-28 04:05] LABS: ALT/SGPT 216 U/L (12-78); AST/SGOT 252 U/L (15-37); Albumin 3.2 g/dL (3.4-5.0); Alkaline Phosphatase 86 U/L (45-117); BUN Blood Urea Nitrogen 22 mg/dL (7-18); Bicarbonate 25 mmol/L (21-32); Glucose Level 96 mg/dL (74-106); Magnesium 2.1 mg/dL (1.8-2.4); Potassium 4.3 mmol/L (3.5-5.1); Protein, Total 6.7 g/dL (6.4-8.2); Sodium Level 141 mmol/L (136-145)
[2021-03-28] MEDS: MORPHINE 2 MG/ML SYR IV PRN ×4 (05:04→23:08)
--- NOTE | 2021-03-28 06:23 | P.PN ---
Subjective Date of Service: 03/28/21 Primary Care Provider: Dr. Santos Chief Complaint: Syncope, fall Subjective: Improving, Doing well Physical Examination - Vital Signs Temperature: 97.4 F Blood Pressure: 131/60 Pulse: 73 Respirations: 19 Pulse Ox (%): 97 - Studies Laboratory Data (last 24 hrs) 03/27/21 14:56: PT 11.3, INR 0.98 03/27/21 14:56: Sodium 141, Potassium 4.2, BUN 34 H, Creatinine 0.59, Glucose 108 H, Magnesium 2.1, Total Bilirubin 1.0, AST 65 H, ALT 98 H, Alkaline Phosphatase 78 03/27/21 14:00: WBC 10.60, Hgb 14.3, Hct 41.5, Plt Count 178 Assessment & Plan Discharge Plan: Home Plan to discharge in: 24 Hours Physician Review Additional Text: COVID: negative CT head: COMPARISON: No comparisons TECHNIQUE: Axial 5 mm thick images of the head were obtained. Axial 2 mm thick images of the cervical spine were obtained with sagittal and coronal reconstruction images generated and reviewed. All CT scans are performed using dose optimization technique as appropriate and may include automated exposure control or mA/KV adjustment according to patient size. FINDINGS: CT HEAD WITHOUT CONTRAST: No acute hemorrhage, hydrocephalus or extra-axial collection is identified.No areas of brain edema or midline shift. The paranasal sinuses and mastoids are clear.The calvarium is intact. CT CERVICAL SPINE WITHOUT CONTRAST: No fracture or subluxation.No prevertebral soft tissues swelling is identified. Apical scarring. IMPRESSION: No acute intracranial or cervical spine findings. CTA head: COMPARISON: No comparisons TECHNIQUE: CT angiography of the head was performed with MIPs. All CT scans are performed using dose optimization technique as appropriate and may include automated exposure control or mA/KV adjustment according to patient size. FINDINGS: Anterior circulation: No aneurysm or large vessel occlusion. No hemodynamically significant stenosis. No arteriovenous malformation identified. Posterior circulation: No aneurysm or large vessel occlusion. No hemodynamically significant stenosis. No arteriovenous malformation identified. IMPRESSION: No significant flow abnormality is detected. CTA neck: COMPARISON: Head C Spine Mpr Wo Con dated 03/27/2021 TECHNIQUE: CT angiography of the neck vessels was performed with MIPs. All CT scans are performed using dose optimization technique as appropriate and may include automated exposure control or mA/KV adjustment according to patient size. FINDINGS: No significant flow abnormality is seen of the common carotid bilaterally. No significant stenosis is identified involving the cervical segments of both internal carotid arteries. Normal flow is seen within both vertebral arteries. Venous contamination limits evaluation of the upper portion of the cervical vertebral arteries. IMPRESSION: No significant flow abnormality of the neck vessels is identified. Note that the distal cervical portions of the vertebral artery is are obscured by streak artifact from the rather significant venous contamination. MRI without contrast head: COMPARISON: No comparisons TECHNIQUE: Sagittal T1-weighted images were obtained along with PD/heavily T2- weighted and T2-FLAIR images. Axial DWI and ADC mapping sequences were also obtained along with coronal heavily T2-weighted images were obtained. FINDINGS: No intracranial hemorrhage, mass or acute infarction. There is no edema or shift of midline structures. No extra-axial fluid collections. Signal voids are seen as a normal finding in the major intracranial vessels. No significant white matter disease. Mastoid air cells and paranasal sinuses are clear. IMPRESSION: No acute intracranial abnormality. No evidence of acute infarct. MRA Brain: COMPARISON: Brain Wo Cont dated 03/27/2021 FINDINGS: 3D noncontrast [id number] MR angiography of the [place] of Max was performed. No aneurysm, flow-limiting stenosis or vascular malformation is seen. Forward flow seen in codominant vertebral arteries. The visualized dural venous sinuses appear patent. IMPRESSION: No significant flow abnormality of the [place] of Max is identified. MRA Neck: Pending Carotid doppler: COMPARISON: Neck Angio dated 03/27/2021 TECHNIQUE: Real-time sonographic evaluation of both carotid systems was performed. Doppler interrogation was performed with waveform tracing bilaterally. FINDINGS: Normal high resistance waveforms are noted in both external carotid arteries. The common carotid arteries and internal carotid arteries show normal low resistance waveforms. Mild soft plaque present at the right proximal ICA, left carotid bulb, and left ICA proximally. Peak systolic and end diastolic velocity values and the ICA/CCA ratios are in the non-hemodynamically significant range. Antegrade flow seen in both vertebral arteries. IMPRESSION: Mild significant atherosclerotic changes noted. No evidence of a hemodynamically significant stenosis. Liver US: Pending Shoulder x-ray: COMPARISON: No comparisons FINDINGS: Comminuted fracture involving the right proximal humerus. The fracture involves the surgical neck and likely extends to the greater tuberosity. Right AC joint degenerative changes. Surgical clips in the right upper quadrant. IMPRESSION: Mildly comminuted right proximal humerus fracture. Physical Exam: GENERAL: The patient is a well-developed, well-nourished, in no apparent distress. Alert and oriented x3. VITAL SIGNS: Reviewed HEENT: Neck supple LUNGS: Clear to auscultation. No crackles or wheezes are heard. HEART: Regular rate and rhythm, no appreciable gallops, rubs, murmurs or extra heart sounds ABDOMEN: Soft, nontender, and nondistended. Positive bowel sounds. No hepatosplenomegaly was noted. EXTREMITIES: Weakness to the right upper and lower extremity improved. Pain controlled to the right shoulder. NEUROLOGIC: Some pain to the right shoulder. As above SKIN: Normal color, turgor and temperature. No ulcerations or rashes noted. Impression: Syncope likely secondary to seizure Right-sided weakness likely related to above Fall leading to mildly comminuted right proximal humerus fracture Depression with anxiety History of melanoma Neuropathy Elevated liver function Chronic headaches Chronic back pain Plan: Syncope likely secondary to seizure: MRI shows no evidence of stroke. Will change Keppra to oral 500 mg twice daily. Want to recheck Keppra level in 1 week. Carotid Doppler negative. Physical therapy to assess ambulation. Await recommendations. EEG and echocardiogram obtained. Will discuss with neurology. Likely discharge today with Keppra 500 mg 1 pill twice daily, aspirin 81 mg daily and folic acid 1 g daily. Fall precautions in place. Seizure precautions to be addressed in detail. Will reassess after physical therapy. Await recommendations by neurology. Right-sided weakness likely related to above: This may be related to her seizure and fall. Continue with physical therapy recommendations. Will discuss further with neurology. MRI shows no stroke Fall leading to mildly comminuted right proximal humerus fracture: Continue with shoulder immobilizer. Spoke with orthopedics. Orthopedics recommends patient to follow-up with orthopedics within the next week for fracture bracing as an outpatient. Depression with anxiety: Continue Paxil 40 mg daily History of melanoma: Patient with recent history of melanoma removed from the chest. Neuropathy: Continue Elavil 50 mg 1 pill daily Elevated liver function: Liver ultrasound to be obtained. Hepatitis panel and HIV panel obtained. Chronic headaches: We will discuss with neurology. Chronic back pain: We will check lumbar and thoracic x-ray. Code Status: Full Code DVT prophylaxis: Lovenox Advanced Care Planning-30 minutes: Anticipate home at discharge Time Spent Managing Pts Care (In Minutes): 55
--- NOTE | 2021-03-28 08:06 | RAD REPORT ---
EXAM DESCRIPTION: - CP - 03/28/2021 1:37 am CLINICAL HISTORY: syncope, seizure COMPARISON: Neck Angio dated 03/27/2021 TECHNIQUE: Real-time sonographic evaluation of both carotid systems was performed. Doppler interroga tion was performed with waveform tracing bilaterally. FINDINGS: Normal high resistance waveforms are noted in both external carotid arteries. The common c arotid arteries and internal carotid arteries show normal low resistance waveforms. Mild soft plaque present at the right proximal ICA, left carotid bulb, and left ICA proximally. Peak systolic and end diastolic velocity values and the ICA/CCA ratios are in the non-hemodynamically sign ificant range. Antegrade flow seen in both vertebral arteries. IMPRESSION: Mild significant atherosclerotic changes noted. No evidence of a hemodynamically significant stenosis.
--- NOTE | 2021-03-28 08:52 | CON ---
Date of Consultation: 03/28/2021 History Of Present Illness: This is my first time seeing this patient to my knowledge. She is a 66- year-old female who unfortunately fell from unknown reasons. I spoke with the hospitalist, who relat ed that the neurologist thinks this may have been from a seizure. She was seen and examined in the e mergency department where she was ruled out for other injuries; however, x-rays demonstrated a proxim al humerus fracture. Physical Examination: Today, she denies any pain with the exception of her right shoulder, which is painful with any moveme nt or manipulation. She appears neurovascularly intact. She is right handed. She says she is retir ed. Imaging: Review of x-rays reveal a somewhat impacted right proximal humerus fracture, primarily at t he surgical neck with some slight anterior translation of the humerus. Assessment: A 66-year-old female, now with an impacted, slightly angulated right proximal humerus fr acture. Plan: Plan at this time, I discussed with the patient risks, benefits, and alternatives of different methods of treating this and we will plan for closed management. She will most likely be discharged from the hospital today, to follow up in my clinic for a probable fracture bracing either this week or early next week. Risks, benefits, and alternatives of different methods of treating this have bee n discussed. We will at this time, treat this closed and her course of treatment as well as diagnosis have been discussed in detail. LONNY Voice ID: [id number] Report ID: [id number]
[2021-03-28] MEDS: levETIRAcetam 500 MG in NA CHLORIDE 0.9% 100 ML IV SCH (09:00)
--- NOTE | 2021-03-28 09:24 | RAD REPORT ---
EXAM DESCRIPTION: MRI - MRA Head Wo Cont - 03/28/2021 8:49 am CLINICAL HISTORY: syncope, seizure CVA COMPARISON: Brain Wo Cont dated 03/27/2021 FINDINGS: 3D noncontrast [id number] MR angiography of the [place] band of Max was performed. No aneurysm, flow-limiting stenosis or vascular malformation is seen. Forward flow seen in codominant vertebral arteries. The visualized dural venous sinuses appear patent. IMPRESSION: No significant flow abnormality of the [place] band of Max is identified.
[2021-03-28] MEDS: PARoxetine HCL 10 MG TAB PO SCH (09:52)
[2021-03-28] MEDS: ASPIRIN EC 81 MG TAB PO SCH (09:53)
[2021-03-28] MEDS: ENOXAPARIN 40 MG/0.4 ML SQ SCH (09:54)
--- NOTE | 2021-03-28 09:58 | RAD REPORT ---
EXAM DESCRIPTION: US - Liver Only - 03/28/2021 9:34 am CLINICAL HISTORY: elevated liver function COMPARISON: No comparisons FINDINGS: Echogenicity of the liver is within normal limits.No intrahepatic biliary ductal dilatatio n. Cholecystectomy.Extrahepatic biliary duct dilatation measuring 14 millimeters.No evidence of hubert l vein thrombosis. The spleen is normal in size. IMPRESSION: Extrahepatic biliary ductal dilatation which may be secondary to the postcholecystectomy state. Correlate with LFTs. MRCP could better evaluate if clinically indicated.
--- NOTE | 2021-03-28 11:08 | RAD REPORT ---
EXAM DESCRIPTION: MRI - Brain W/Wo Cont - 03/28/2021 10:06 am CLINICAL HISTORY: Hemiplegia COMPARISON: MRI from 03/27/2021 TECHNIQUE: Sagittal and axial T1-weighted images were obtained. Axial PD/heavily T2-weighted and T2- FLAIR images were obtained along with axial DWI/ADC mapping sequences. Axial and coronal post-contras t T1-weighted images were also obtained. FINDINGS: No intracranial hemorrhage, mass or acute infarction. There is no edema or shift of midlin e structures. No extra-axial fluid collections. Pickard-matter/white matter junction is preserved. Signa l voids are seen as a normal finding in the major intracranial vessels. Post-contrast images show normal enhancement. No dural thickening. Mastoid air cells and paranasal sinuses are clear. IMPRESSION: No acute intracranial abnormality. Specifically, no evidence of acute infarct. No abnorm al enhancement.
--- NOTE | 2021-03-28 11:13 | RAD REPORT ---
EXAM DESCRIPTION: MRI - MRA Neck W/Wo Cont - 03/28/2021 10:06 am CLINICAL HISTORY: syncope, seizure COMPARISON: No comparisons FINDINGS: Contrast enhance 2D [id number] MR angiography of the neck vessels was performed. Both common carotid internal carotid arteries are widely patent. The external carotid arteries are wi shelia patent. Slight right dominant vertebral artery. The vertebral arteries are both otherwise patent . IMPRESSION: No flow limiting arterial stenosis is present within the neck.
--- NOTE | 2021-03-28 13:05 | EKG ---
Test Date: 2021-03-27 Test Time: 13:10:29 Linux Security Administrator: CODY MEASUREMENT RESULTS: Intervals: Rate: 98 CO: 154 QRSD: 120 QT: 372 QTc: 474 Prentice: P: 81 CO: 154 QRS: 230 T: -5 INTERPRETIVE STATEMENTS: Normal sinus rhythm Right superior axis deviation Incomplete left bundle branch block ST & T wave abnormality, consider lateral ischemia Abnormal ECG Compared to ECG 12/06/2020 11:13:04 Right superior axis now present Left bundle-branch block now present Left-axis deviation no longer present Left ventricular hypertrophy no longer present Early repolarization no longer present Myocardial infarct finding no longer present Electronically Signed On 03-28-21 13:02:54 CELL INSTALLER by Dominic Brasher
--- NOTE | 2021-03-28 13:08 | RAD REPORT ---
EXAM DESCRIPTION: RAD - Spine Lumbar W obliques - 03/28/2021 12:53 pm CLINICAL HISTORY: fall, chronic back pain COMPARISON: CT ABDOMEN PELVIS WO CONTRAST dated 08/09/2014; Chest Pa And Lat (2 Views) dated 1 FINDINGS: L1 compression fracture with approximately 40% loss of height anteriorly. This is favored chronic. Dextroscoliotic curvature centered at L4. IMPRESSION: Probably remote L1 compression fracture. MRI could better establish the acuity if clinic ally indicated.
--- NOTE | 2021-03-28 13:24 | RAD REPORT ---
EXAM DESCRIPTION: RAD - Thoracic Spine Ap/Lat - 03/28/2021 12:54 pm CLINICAL HISTORY: fall, chronic back pain COMPARISON: No comparisons FINDINGS: L1 compression fracture which is favored chronic. No thoracic spinal fracture is identifie d . No malalignment. No significant focal degenerative changes. Surgical clips in the right upper nupur drant. IMPRESSION: No acute osseous abnormality involving the thoracic spine. Probably chronic L1 compressi on fracture.
--- NOTE | 2021-03-28 13:53 | ECHO ---
HEIGHT: 5 ft 3 in WEIGHT: 155 lb 0 oz DATE OF STUDY: 03/28/[address]: Trell Hitchcock DO 2-DIMENSIONAL: YES M.MODE: YES DOPPLER: YES COLOR FLOW: YES TDS: NO PORTABLE: NO DEFINITY: NO BUBBLE STUDY: NO DIAGNOSIS: SYNCOPE CARDIAC HISTORY: CATHERIZATION: SURGERY: PROSTHETIC VALVE: PACEMAKER: MEASUREMENTS (cm) DIASTOLIC (NORMALS) SYSTOLIC (NORMALS) IVSd 0.9 (0.6-1.2) LA Diam 3.0 (1.9-4.0) LVEF 38% LVIDd 4.7 (3.5-5.7) LVIDs 3.9 (2.0-3.5) %FS 18% LVPWd 1.0 (0.6-1.2) Ao Diam 2.8 (2.0-3.7) 2 DIMENSIONAL ASSESSMENT: RIGHT ATRIUM: NORMAL LEFT ATRIUM: NORMAL RIGHT VENTRICLE: NORMAL LEFT VENTRICLE: NORMAL TRICUSPID VALVE: NORMAL MITRAL VALVE: NORMAL PULMONIC VALVE: NORMAL AORTIC VALVE: NORMAL PERICARDIAL EFFUSION: NONE AORTIC ROOT: NORMAL LEFT VENTRICULAR WALL MOTION: NORMAL DOPPLER/COLOR FLOW: MILD TRICUSPID REGURGITATION. NORMAL RIGHT VENTRICULAR SYSTOLIC PRESSURE. COMMENTS: MILD TRICUSPID REGURGITATION. NORMAL RIGHT VENTRICULAR SYSTOLIC PRESSURE. NO EFFUSION. NO MITRAL VALVE PROLAPSE. TECHNOLOGIST: Deborah CARDOZO
[2021-03-28 14:39] LABS: Urine Appearance CLOUDY (Clear); Urine Bilirubin NEGATIVE (Negative); Urine Blood TRACE (Negative); Urine Color YELLOW (Yellow); Urine Glucose NEGATIVE (Negative); Urine Protein NEGATIVE (Negative); Urine Specific Gravity >=1.030 (1.005-1.030); Urine Urobilinogen 0.2 mg/dL (0.2-1.0); Urine pH 5.5 (5.0-7.0)
[2021-03-28 15:02] LABS: Urine Microscopic Reflex ORDER UMIC
[2021-03-28 15:03] LABS: Urine Bacteria 20-50 /HPF (<20); Urine Mucus 1+ /HPF (NONE SEEN)
[2021-03-28] MEDS: levETIRAcetam 500 MG TAB PO SCH (20:57)
[2021-03-28] MEDS: AMITRIPTYLINE 50 MG TAB PO SCH (20:57)
--- NOTE | 2021-03-29 06:16 | P.PN ---
Subjective Date of Service: 03/29/21 Primary Care Provider: Dr. Santos Chief Complaint: Syncope, fall Subjective: Doing well (Better strength noted to the right lower and upper extremity.) Physical Examination - Vital Signs Temperature: 97.6 F Blood Pressure: 114/57 Pulse: 87 Respirations: 16 Pulse Ox (%): 95 Assessment & Plan Discharge Plan: Other (Home with home health versus inpatient rehab) Plan to discharge in: 24 Hours Physician Review Additional Text: COVID: negative CT head: COMPARISON: No comparisons TECHNIQUE: Axial 5 mm thick images of the head were obtained. Axial 2 mm thick images of the cervical spine were obtained with sagittal and coronal reconstruction images generated and reviewed. All CT scans are performed using dose optimization technique as appropriate and may include automated exposure control or mA/KV adjustment according to patient size. FINDINGS: CT HEAD WITHOUT CONTRAST: No acute hemorrhage, hydrocephalus or extra-axial collection is identified.No areas of brain edema or midline shift. The paranasal sinuses and mastoids are clear.The calvarium is intact. CT CERVICAL SPINE WITHOUT CONTRAST: No fracture or subluxation.No prevertebral soft tissues swelling is identified. Apical scarring. IMPRESSION: No acute intracranial or cervical spine findings. CTA head: COMPARISON: No comparisons TECHNIQUE: CT angiography of the head was performed with MIPs. All CT scans are performed using dose optimization technique as appropriate and may include automated exposure control or mA/KV adjustment according to patient size. FINDINGS: Anterior circulation: No aneurysm or large vessel occlusion. No hemodynamically significant stenosis. No arteriovenous malformation identified. Posterior circulation: No aneurysm or large vessel occlusion. No hemodynamically significant stenosis. No arteriovenous malformation identified. IMPRESSION: No significant flow abnormality is detected. CTA neck: COMPARISON: Head C Spine Mpr Wo Con dated 03/27/2021 TECHNIQUE: CT angiography of the neck vessels was performed with MIPs. All CT scans are performed using dose optimization technique as appropriate and may include automated exposure control or mA/KV adjustment according to patient size. FINDINGS: No significant flow abnormality is seen of the common carotid bilaterally. No significant stenosis is identified involving the cervical segments of both internal carotid arteries. Normal flow is seen within both vertebral arteries. Venous contamination limits evaluation of the upper portion of the cervical vertebral arteries. IMPRESSION: No significant flow abnormality of the neck vessels is identified. Note that the distal cervical portions of the vertebral artery is are obscured by streak artifact from the rather significant venous contamination. MRI without contrast head: COMPARISON: No comparisons TECHNIQUE: Sagittal T1-weighted images were obtained along with PD/heavily T2- weighted and T2-FLAIR images. Axial DWI and ADC mapping sequences were also obtained along with coronal heavily T2-weighted images were obtained. FINDINGS: No intracranial hemorrhage, mass or acute infarction. There is no edema or shift of midline structures. No extra-axial fluid collections. Signal voids are seen as a normal finding in the major intracranial vessels. No significant white matter disease. Mastoid air cells and paranasal sinuses are clear. IMPRESSION: No acute intracranial abnormality. No evidence of acute infarct. MRA Brain: COMPARISON: Brain Wo Cont dated 03/27/2021 FINDINGS: 3D noncontrast [id number] MR angiography of the [place] was performed. No aneurysm, flow-limiting stenosis or vascular malformation is seen. Forward flow seen in codominant vertebral arteries. The visualized dural venous sinuses appear patent. IMPRESSION: No significant flow abnormality of the [place] is identified. MRA Neck: COMPARISON: No comparisons FINDINGS: Contrast enhance 2D [id number] MR angiography of the neck vessels was performed. Both common carotid internal carotid arteries are widely patent. The external carotid arteries are widely patent. Slight right dominant vertebral artery. The vertebral arteries are both otherwise patent. IMPRESSION: No flow limiting arterial stenosis is present within the neck. Carotid doppler: COMPARISON: Neck Angio dated 03/27/2021 TECHNIQUE: Real-time sonographic evaluation of both carotid systems was performed. Doppler interrogation was performed with waveform tracing bilaterally. FINDINGS: Normal high resistance waveforms are noted in both external carotid arteries. The common carotid arteries and internal carotid arteries show normal low resistance waveforms. Mild soft plaque present at the right proximal ICA, left carotid bulb, and left ICA proximally. Peak systolic and end diastolic velocity values and the ICA/CCA ratios are in the non-hemodynamically significant range. Antegrade flow seen in both vertebral arteries. IMPRESSION: Mild significant atherosclerotic changes noted. No evidence of a hemodynamically significant stenosis. Liver US: COMPARISON: No comparisons FINDINGS: Echogenicity of the liver is within normal limits.No intrahepatic biliary ductal dilatation. Cholecystectomy.Extrahepatic biliary duct dilatation measuring 14 millimeters.No evidence of portal vein thrombosis. The spleen is normal in size. IMPRESSION: Extrahepatic biliary ductal dilatation which may be secondary to the postcholecystectomy state. Correlate with LFTs. MRCP: COMPARISON: MRCP 2014 and March 28, 2021 ultrasound TECHNIQUE: Magnetic resonance cholangiogram was performed.3D MIP reconstruction performed FINDINGS: Cholecystectomy The common bile duct is dilated but without significant change from 2015. It measures 11 millimeters proximally. The very distal common bile duct is narrowed. Pancreatic duct is normal caliber. 4 millimeter cyst abutting the pancreatic duct is unchanged and likely benign IMPRESSION: Dilatation of the common bile duct with narrowing of the distal common bile duct. This is unchanged in appearance from 2015. This may be physiologic status post cholecystectomy or due to stricture. Shoulder x-ray: COMPARISON: No comparisons FINDINGS: Comminuted fracture involving the right proximal humerus. The fracture involves the surgical neck and likely extends to the greater tuberosity. Right AC joint degenerative changes. Surgical clips in the right upper quadrant. IMPRESSION: Mildly comminuted right proximal humerus fracture. T spine xray: COMPARISON: No comparisons FINDINGS: L1 compression fracture which is favored chronic. No thoracic spinal fracture is identified . No malalignment. No significant focal degenerative changes. Surgical clips in the right upper quadrant. IMPRESSION: No acute osseous abnormality involving the thoracic spine. Probably chronic L1 compression fracture. L spine Xray: COMPARISON: CT ABDOMEN PELVIS WO CONTRAST dated 08/09/2014; Chest Pa And Lat (2 Views) dated 12/06/2020 FINDINGS: L1 compression fracture with approximately 40% loss of height anteriorly. This is favored chronic. Dextroscoliotic curvature centered at L4. IMPRESSION: Probably remote L1 compression fracture. MRI could better establish the acuity if clinically indicated. ECHO: MEASUREMENTS (cm) DIASTOLIC (NORMALS) SYSTOLIC (NORMALS) IVSd 0.9 (0.6-1.2) LA Diam 3.0 (1.9-4.0) LVEF 38% LVIDd 4.7 (3.5-5.7) LVIDs 3.9 (2.0-3.5) %FS 18% LVPWd 1.0 (0.6-1.2) Ao Diam 2.8 (2.0-3.7) 2 DIMENSIONAL ASSESSMENT: RIGHT ATRIUM: NORMAL LEFT ATRIUM: NORMAL RIGHT VENTRICLE: NORMAL LEFT VENTRICLE: NORMAL TRICUSPID VALVE: NORMAL MITRAL VALVE: NORMAL PULMONIC VALVE: NORMAL AORTIC VALVE: NORMAL PERICARDIAL EFFUSION: NONE AORTIC ROOT: NORMAL LEFT VENTRICULAR WALL MOTION: NORMAL DOPPLER/COLOR FLOW: MILD TRICUSPID REGURGITATION. NORMAL RIGHT VENTRICULAR SYSTOLIC PRESSURE. COMMENTS: MILD TRICUSPID REGURGITATION. NORMAL RIGHT VENTRICULAR SYSTOLIC PRESSURE. NO EFFUSION. NO MITRAL VALVE PROLAPSE. Physical Exam: GENERAL: The patient is a well-developed, well-nourished, in no apparent distress. Alert and oriented x3. VITAL SIGNS: Reviewed HEENT: Neck supple LUNGS: Clear to auscultation. No crackles or wheezes are heard. HEART: Regular rate and rhythm, no appreciable gallops, rubs, murmurs or extra heart sounds ABDOMEN: Soft, nontender, and nondistended. Positive bowel sounds. No hepatosplenomegaly was noted. EXTREMITIES: Better strength to the right upper and lower extremities. NEUROLOGIC: Pain improved to the right shoulder SKIN: Normal color, turgor and temperature. No ulcerations or rashes noted. Impression: Syncope likely secondary to seizure Right-sided weakness likely related to above Fall leading to mildly comminuted right proximal humerus fracture Depression with anxiety History of melanoma Neuropathy Chronic headaches Chronic back pain with Possible remote L1 compression fracture Elevated liver function with noted dilation of the common bile duct with narrowing of the distal common bile duct Plan: Syncope likely secondary to seizure: MRI shows no stroke. Continue Keppra 500 mg 1 pill twice daily and folic acid 1 mg daily. Better strength noted to the right upper and lower extremity. Continue with physical therapy. Patient able to ambulate. Will reassess after physical therapy today. If doing well will consider discharge home today with home health and physical therapy. Right-sided weakness likely related to above: This may be related to her seizure and fall. Continue with physical therapy recommendations. Try to arrange for home health and physical therapy. Fall leading to mildly comminuted right proximal humerus fracture: Continue with shoulder immobilizer. Spoke with orthopedics. Orthopedics recommends patient to follow-up with orthopedics within the next week for fracture bracing as an outpatient. Depression with anxiety: Continue Paxil 40 mg daily History of melanoma: Patient with recent history of melanoma removed from the chest. Neuropathy: Continue Elavil 50 mg 1 pill daily Chronic headaches: We will discuss with neurology. Chronic back pain with possible remote L1 compression fracture: X-ray shows L1 compression fracture with approximately 40% loss of height anteriorly. This is favored to be chronic. Continue with medication for pain. Fall precautions in place. Continue recommendations from physical therapy. Patient was able to ambulate yesterday. Better strength noted. Possible home with home health and physical therapy at discharge. Elevated liver function with noted dilation of the common bile duct with narrowing of the distal common bile duct: MRCP shows dilation of the common bile duct with narrowing of the distal common bile duct. This is unchanged since 2015. Liver function improved. Hepatitis panel and HIV panel pending. This is likely physiologic. Will discuss with GI. Likely no intervention required. Code Status: Full Code DVT prophylaxis: Lovenox Advanced Care Planning-30 minutes: Home with home health and physical therapy. Time Spent Managing Pts Care (In Minutes): 55
[2021-03-29 07:20] LABS: Absolute Lymphocytes (CBC) 1.1 K/uL (0.7-4.9); Basophils % 0.7 % (0-1.3); Hematocrit 33.1 % (36.0-45.0); Lymphocytes % 26.5 % (15.3-44.8); MPV 8.7 fL (7.6-11.3); RBC Red Blood Cell Count 3.51 M/uL (3.86-4.86)
[2021-03-29 07:35] LABS: ALT/SGPT 206 U/L (12-78); AST/SGOT 163 U/L (15-37); Albumin 2.9 g/dL (3.4-5.0); Alkaline Phosphatase 101 U/L (45-117); BUN Blood Urea Nitrogen 17 mg/dL (7-18); Bicarbonate 28 mmol/L (21-32); Bilirubin Total 0.7 mg/dL (0.2-1.0); Glucose Level 102 mg/dL (74-106); Potassium 3.9 mmol/L (3.5-5.1); Protein, Total 6.4 g/dL (6.4-8.2); Sodium Level 143 mmol/L (136-145)
--- NOTE | 2021-03-29 08:34 | RAD REPORT ---
EXAM DESCRIPTION: [id number]/8/2021 7:50 am CLINICAL HISTORY: Elevated liver function test enzymes. Abnormal ultrasound COMPARISON: MRCP 2014 and March 28, 2021 ultrasound TECHNIQUE: Magnetic resonance cholangiogram was performed.3D MIP reconstruction performed FINDINGS: Cholecystectomy The common bile duct is dilated but without significant change from 2015. It measures 11 millimeters proximally. The very distal common bile duct is narrowed. Pancreatic duct is normal caliber. 4 millimeter cyst abutting the pancreatic duct is unchanged and li bartolo benign IMPRESSION: Dilatation of the common bile duct with narrowing of the distal common bile duct. This i s unchanged in appearance from 2015. This may be physiologic status post cholecystectomy or due to st ricture.
[2021-03-29] MEDS ORDERED: FOLIC ACID 1 MG TABLET PO SCH (09:00)
[2021-03-29] MEDS: PARoxetine HCL 10 MG TAB PO SCH (09:12)
[2021-03-29] MEDS: ASPIRIN EC 81 MG TAB PO SCH (09:12)
[2021-03-29] MEDS: levETIRAcetam 500 MG TAB PO SCH (09:12)
[2021-03-29] MEDS: MORPHINE 2 MG/ML SYR IV PRN ×2 (09:13→14:18)
[2021-03-29] MEDS: ENOXAPARIN 40 MG/0.4 ML SQ SCH (09:13)
[2021-03-29 11:25] VITALS: O2SAT 98
[2021-03-29 12:25] VITALS: BP 118/64; TEMP 97
--- NOTE | 2021-03-29 14:00 | EEG ---
CHART: [id number] TEST ID#: [id number] DATE OF STUDY: 03/28/2021 THE EEG WAS RECORDED PORTABLE IN THE PATIENT'S ROOM ON A 17 CHANNEL MACHINE. ELECTRODES WERE APPLIED IN THE USUAL MANNER USING THE INTERNATIONAL 10-20 SYSTEM. THE [place]AK[place] BACKGROUND RHYTHM IN THIS RECORD CONSISTS OF WELL DEVELOPED AND WELL ORGANIZED WAVES OF 8.5 HZ., MAXIMAL IN THE POSTERIOR HEAD REGIONS WHICH ATTENUATE NORMALLY WITH EYE OPENING. LOW-VOLTAGE 18-22 HZ ACTIVITY IS EXPRESSED IN THE FRONTAL REGIONS. THERE ARE NO FOCAL OR LATERALIZING FEATURES. NO EPILEPTIFORM ACTIVITY APPEARS. SLEEP DID NOT OCCUR. HYPERVENTILATION WAS NOT PERFORMED. PHOTIC STIMULATION PRODUCED NO DRIVING BILATERALLY. IMPRESSION: NORMAL EEG FOR THE AGE OF THE PATIENT IN [place].
--- NOTE | 2021-03-29 14:08 | P.DS ---
Admission Date: 03/28/21 Discharge Date: 03/29/21 Primary Care Provider: Dr. Santos Disposition: DC HOME/HOME HEALTH CARE Discharge Condition: GOOD Reason for Admission: Syncope, fall Consultations: Neurology-Dr. Joseph GI-Dr. De Anda Orthopedics-Dr. Dennis Procedures: COVID: negative CT head: COMPARISON: No comparisons TECHNIQUE: Axial 5 mm thick images of the head were obtained. Axial 2 mm thick images of the cervical spine were obtained with sagittal and coronal reconstruction images generated and reviewed. All CT scans are performed using dose optimization technique as appropriate and may include automated exposure control or mA/KV adjustment according to patient size. FINDINGS: CT HEAD WITHOUT CONTRAST: No acute hemorrhage, hydrocephalus or extra-axial collection is identified.No areas of brain edema or midline shift. The paranasal sinuses and mastoids are clear.The calvarium is intact. CT CERVICAL SPINE WITHOUT CONTRAST: No fracture or subluxation.No prevertebral soft tissues swelling is identified. Apical scarring. IMPRESSION: No acute intracranial or cervical spine findings. CTA head: COMPARISON: No comparisons TECHNIQUE: CT angiography of the head was performed with MIPs. All CT scans are performed using dose optimization technique as appropriate and may include automated exposure control or mA/KV adjustment according to patient size. FINDINGS: Anterior circulation: No aneurysm or large vessel occlusion. No hemodynamically significant stenosis. No arteriovenous malformation identified. Posterior circulation: No aneurysm or large vessel occlusion. No hemodynamically significant stenosis. No arteriovenous malformation identified. IMPRESSION: No significant flow abnormality is detected. CTA neck: COMPARISON: Head C Spine Mpr Wo Con dated 03/27/2021 TECHNIQUE: CT angiography of the neck vessels was performed with MIPs. All CT scans are performed using dose optimization technique as appropriate and may include automated exposure control or mA/KV adjustment according to patient size. FINDINGS: No significant flow abnormality is seen of the common carotid bilaterally. No significant stenosis is identified involving the cervical segments of both internal carotid arteries. Normal flow is seen within both vertebral arteries. Venous contamination limits evaluation of the upper portion of the cervical vertebral arteries. IMPRESSION: No significant flow abnormality of the neck vessels is identified. Note that the distal cervical portions of the vertebral artery is are obscured by streak artifact from the rather significant venous contamination. MRI without contrast head: COMPARISON: No comparisons TECHNIQUE: Sagittal T1-weighted images were obtained along with PD/heavily T2- weighted and T2-FLAIR images. Axial DWI and ADC mapping sequences were also obtained along with coronal heavily T2-weighted images were obtained. FINDINGS: No intracranial hemorrhage, mass or acute infarction. There is no edema or shift of midline structures. No extra-axial fluid collections. Signal voids are seen as a normal finding in the major intracranial vessels. No significant white matter disease. Mastoid air cells and paranasal sinuses are clear. IMPRESSION: No acute intracranial abnormality. No evidence of acute infarct. MRA Brain: COMPARISON: Brain Wo Cont dated 03/27/2021 FINDINGS: 3D noncontrast [id number] MR angiography of the [place] was performed. No aneurysm, flow-limiting stenosis or vascular malformation is seen. Forward flow seen in codominant vertebral arteries. The visualized dural venous sinuses appear patent. IMPRESSION: No significant flow abnormality of the [place] is identified. MRA Neck: COMPARISON: No comparisons FINDINGS: Contrast enhance 2D [id number] MR angiography of the neck vessels was performed. Both common carotid internal carotid arteries are widely patent. The external carotid arteries are widely patent. Slight right dominant vertebral artery. The vertebral arteries are both otherwise patent. IMPRESSION: No flow limiting arterial stenosis is present within the neck. Carotid doppler: COMPARISON: Neck Angio dated 03/27/2021 TECHNIQUE: Real-time sonographic evaluation of both carotid systems was performed. Doppler interrogation was performed with waveform tracing bilaterally. FINDINGS: Normal high resistance waveforms are noted in both external carotid arteries. The common carotid arteries and internal carotid arteries show normal low resistance waveforms. Mild soft plaque present at the right proximal ICA, left carotid bulb, and left ICA proximally. Peak systolic and end diastolic velocity values and the ICA/CCA ratios are in the non-hemodynamically significant range. Antegrade flow seen in both vertebral arteries. IMPRESSION: Mild significant atherosclerotic changes noted. No evidence of a hemodynamically significant stenosis. Liver US: COMPARISON: No comparisons FINDINGS: Echogenicity of the liver is within normal limits.No intrahepatic biliary ductal dilatation. Cholecystectomy.Extrahepatic biliary duct dilatation measuring 14 millimeters.No evidence of portal vein thrombosis. The spleen is normal in size. IMPRESSION: Extrahepatic biliary ductal dilatation which may be secondary to the postcholecystectomy state. Correlate with LFTs. MRCP: COMPARISON: MRCP 2014 and March 28, 2021 ultrasound TECHNIQUE: Magnetic resonance cholangiogram was performed.3D MIP reconstruction performed FINDINGS: Cholecystectomy The common bile duct is dilated but without significant change from 2015. It measures 11 millimeters proximally. The very distal common bile duct is narrowed. Pancreatic duct is normal caliber. 4 millimeter cyst abutting the pancreatic duct is unchanged and likely benign IMPRESSION: Dilatation of the common bile duct with narrowing of the distal common bile duct. This is unchanged in appearance from 2015. This may be physiologic status post cholecystectomy or due to stricture. Shoulder x-ray: COMPARISON: No comparisons FINDINGS: Comminuted fracture involving the right proximal humerus. The fracture involves the surgical neck and likely extends to the greater tuberosity. Right AC joint degenerative changes. Surgical clips in the right upper quadrant. IMPRESSION: Mildly comminuted right proximal humerus fracture. T spine xray: COMPARISON: No comparisons FINDINGS: L1 compression fracture which is favored chronic. No thoracic spinal fracture is identified . No malalignment. No significant focal degenerative changes. Surgical clips in the right upper quadrant. IMPRESSION: No acute osseous abnormality involving the thoracic spine. Probably chronic L1 compression fracture. L spine Xray: COMPARISON: CT ABDOMEN PELVIS WO CONTRAST dated 08/09/2014; Chest Pa And Lat (2 Views) dated 12/06/2020 FINDINGS: L1 compression fracture with approximately 40% loss of height anteriorly. This is favored chronic. Dextroscoliotic curvature centered at L4. IMPRESSION: Probably remote L1 compression fracture. MRI could better establish the acuity if clinically indicated. ECHO: MEASUREMENTS (cm) DIASTOLIC (NORMALS) SYSTOLIC (NORMALS) IVSd 0.9 (0.6-1.2) LA Diam 3.0 (1.9-4.0) LVEF 38% LVIDd 4.7 (3.5-5.7) LVIDs 3.9 (2.0-3.5) %FS 18% LVPWd 1.0 (0.6-1.2) Ao Diam 2.8 (2.0-3.7) 2 DIMENSIONAL ASSESSMENT: RIGHT ATRIUM: NORMAL LEFT ATRIUM: NORMAL RIGHT VENTRICLE: NORMAL LEFT VENTRICLE: NORMAL TRICUSPID VALVE: NORMAL MITRAL VALVE: NORMAL PULMONIC VALVE: NORMAL AORTIC VALVE: NORMAL PERICARDIAL EFFUSION: NONE AORTIC ROOT: NORMAL LEFT VENTRICULAR WALL MOTION: NORMAL DOPPLER/COLOR FLOW: MILD TRICUSPID REGURGITATION. NORMAL RIGHT VENTRICULAR SYSTOLIC PRESSURE. COMMENTS: MILD TRICUSPID REGURGITATION. NORMAL RIGHT VENTRICULAR SYSTOLIC PRESSURE. NO EFFUSION. NO MITRAL VALVE PROLAPSE. EEG: Showed no seizure likel activity Medical Problem List: Syncope likely secondary to seizure Right-sided weakness likely related to above Fall leading to mildly comminuted right proximal humerus fracture Depression with anxiety History of melanoma Neuropathy Chronic headaches Chronic back pain with Possible remote L1 compression fracture Elevated liver function with noted dilation of the common bile duct with narrowing of the distal common bile duct likely physiologic Brief History of Present Illness: 66-year-old female reported headache this morning. Patient reports headaches at times. Patient had pain to the frontal area. She rated the pain about a 7 out of 10. She took some Tylenol and went to bed. When she got up around 10 AM she had to the kitchen for food. At which point the patient blacked out. She was on the ground for over 2 hours. She does not recall the events during this time period. She was brought into the ER for further evaluation. In the ER patient appears stable. Vital signs stable. CT head neck unremarkable. Chest x-ray unremarkable. X-ray of shoulder showed right proximal humerus fracture. Subsequent MRI without contrast of the head showed no acute CVA. Patient was started on IV Keppra. Patient admitted for treatment. Patient with history of melanoma, depression with anxiety and neuropathy. Patient reports no history of CVA or seizure. Hospital Course: Patient presented with syncopal episode. This was likely related to new onset seizure. Patient also presented with right-sided weakness and found to have mildly comminuted right proximal humerus fracture. Patient was seen by multiple specialists including neurology and orthopedics. Multiple evaluations done. CT head unremarkable. CTA and neck unremarkable. MRI head showed no evidence of stroke. MRA head and neck unremarkable. EEG showed no seizure activity upon evaluation. Patient was placed on IV Keppra due to new onset seizure. Patient did well during the course of her stay. Patient worked with physical therapy and Occupational Therapy. Patient able to ambulate at discharge. Case discussed at length with neurology. Neurology recommends to continue aspirin 81 mg daily, folic acid 1 mg daily, and Keppra 500 mg 1 pill twice daily. Recommend to recheck labCBC, CMP and Keppra level in 1 week to follow-up this hospitalization. Recommend follow-up with neurology in 1 to 2 weeks to follow- up with this hospitalization. Patient will continue with seizure precautions. This requires no driving, no swimming alone, operating heavy machinery, or on elevated surfaces by herself. Recommend follow-up with PCP within 1 week to follow-up this hospitalization. Concerning her recent fall and mildly comminuted right proximal humerus fracture, patient was seen and evaluated by orthopedics. No intervention was required. Shoulder was immobilized with immobilizer. Patient can follow-up with orthopedics later this week or early next week for fracture bracing. This will be done as an outpatient. Patient may take Tylenol or ibuprofen as needed for pain. Patient with depression and anxiety. Patient takes medication for this. Patient will continue with her medication Paxil 40 mg daily. Patient with chronic headaches and neuropathy. At discharge patient will continue with Elavil 50 mg daily. Patient also had a evaluation of her spine. Patient with history of chronic back pain. X-ray shows remote L1 compression fracture. This is likely chronic. Patient will continue with physical therapy with home health. Fall precautions in place. Patient may require further evaluation with MRI if pain persists. Patient would benefit with pain management referral to further address and treat. This can be done with the help of her PCP. Lidocaine patch will be provided to be used as needed for pain. Patient may take Tylenol or ibuprofen as needed for pain. Recommend to limit Tylenol less than 3 g/day and ibuprofen less than 1200 mg/day. Patient also found to have elevated liver function. Liver ultrasound and MRCP showed dilation of the common bile duct with narrowing of the distal common bile duct. Case discussed in detail with GI. No intervention required. This was likely physiologic as this was unchanged since 2014. Hepatitis panel and HIV panel obtained. This will need to be followed up by her PCP. Recommend to recheck liver function testsCMP in 1 week to monitor progress. Recommend follow-up with GI in 1 to 2 weeks to follow-up his hospitalization to further address. As mentioned above patient will continue with home health and physical therapy at discharge. Fall precautions in place. Vital Signs/Physical Exam: Temp Pulse Resp BP Pulse Ox 97.0 F 96 H 18 118/64 96 03/29/21 12:00 03/29/21 12:00 03/29/21 12:00 03/29/21 12:03/29/21 12:00 General: Alert, In no apparent distress, Oriented x3, Cooperative HEENT: Atraumatic Neck: Supple Respiratory: Clear to auscultation bilaterally, Normal air movement Cardiovascular: Normal pulses, Regular rate/rhythm Gastrointestinal: Normal bowel sounds, No ascites, No tenderness, No masses, No rebound, No guarding Musculoskeletal: No erythema, No tenderness, No warmth Neurological: Normal speech, Other (Better strength noted to the right upper and lower extremities. Right shoulder with less pain noted. Immobilizer in place.) Laboratory Data at Discharge: WBC 4.30 K/uL (4.3-10.9) D 03/29/21 06:40 Hgb 11.2 g/dL (12.0-15.0) L 03/29/21 06:40 Hct 33.1 % (36.0-45.0) L 03/29/21 06:40 Plt Count 128 K/uL (152-406) L 03/29/21 06:40 PT 11.3 SECONDS (9.5-12.5) 03/27/21 14:56 INR 0.98 03/27/21 14:56 Sodium 143 mmol/L (136-145) 03/29/21 06:40 Potassium 3.9 mmol/L (3.5-5.1) 03/29/21 06:40 BUN 17 mg/dL (7-18) 03/29/21 06:40 Creatinine 0.42 mg/dL (0.55-1.3) L 03/29/21 06:40 Glucose 102 mg/dL (74-106) 03/29/21 06:40 Magnesium 2.1 mg/dL (1.8-2.4) 03/28/21 03:14 Total Bilirubin 0.7 mg/dL (0.2-1.0) 03/29/21 06:40 AST 163 U/L (15-37) H 03/29/21 06:40 ALT 206 U/L (12-78) H 03/29/21 06:40 Alkaline Phosphatase 101 U/L (45-117) 03/29/21 06:40 Troponin I < 0.02 ng/mL (0.0-0.045) 03/27/21 21:10 Triglycerides 50 mg/dL (<150) 03/29/21 05:17 Cholesterol 124 mg/dL (<200) 03/29/21 05:17 HDL Cholesterol 54 mg/dL (40-60) 03/29/21 05:17 Cholesterol/HDL Ratio 2.30 03/29/21 05:17 Home Medications: Amitriptyline [Elavil*] 50 mg PO BEDTIME 03/27/21 PARoxetine HCL [Paroxetine HCl] 40 mg PO DAILY 03/27/21 Aspirin [Aspirin EC 81 MG] 81 mg PO DAILY #90 tablet. 03/29/21 Folic Acid 1 mg PO DAILY #90 tablet 03/29/21 levETIRAcetam [Keppra*] 500 mg PO BID #60 tab 03/29/21 New Medications: Aspirin [Aspirin EC 81 MG] 81 mg PO DAILY #90 tablet. Folic Acid 1 mg PO DAILY #90 tablet levETIRAcetam [Keppra*] 500 mg PO BID #60 tab Physician Discharge Instructions: Patient presented with syncopal episode. This was likely related to new onset seizure. Patient also presented with right-sided weakness and found to have mildly comminuted right proximal humerus fracture. Patient was seen by multiple specialists including neurology and orthopedics. Multiple evaluations done. CT head unremarkable. CTA and neck unremarkable. MRI head showed no evidence of stroke. MRA head and neck unremarkable. EEG showed no seizure activity upon evaluation. Patient was placed on IV Keppra due to new onset seizure. Patient did well during the course of her stay. Patient worked with physical therapy and Occupational Therapy. Patient able to ambulate at discharge. Case discussed at length with neurology. Neurology recommends to continue aspirin 81 mg daily, folic acid 1 mg daily, and Keppra 500 mg 1 pill twice daily. Recommend to recheck labCBC, CMP and Keppra level in 1 week to follow-up this hospitalization. Recommend follow-up with neurology in 1 to 2 weeks to follow- up with this hospitalization. Patient will continue with seizure precautions. This requires no driving, no swimming alone, operating heavy machinery, or on elevated surfaces by herself. Recommend follow-up with PCP within 1 week to follow-up this hospitalization. Concerning her recent fall and mildly comminuted right proximal humerus fracture, patient was seen and evaluated by orthopedics. No intervention was required. Shoulder was immobilized with immobilizer. Patient can follow-up with orthopedics later this week or early next week for fracture bracing. This will be done as an outpatient. Patient may take Tylenol or ibuprofen as needed for pain. Patient with depression and anxiety. Patient takes medication for this. Patient will continue with her medication Paxil 40 mg daily. Patient with chronic headaches and neuropathy. At discharge patient will continue with Elavil 50 mg daily. Patient also had a evaluation of her spine. Patient with history of chronic back pain. X-ray shows remote L1 compression fracture. This is likely chronic. Patient will continue with physical therapy with home health. Fall precautions in place. Patient may require further evaluation with MRI if pain persists. Patient would benefit with pain management referral to further address and treat. This can be done with the help of her PCP. Lidocaine patch will be provided to be used as needed for pain. Patient may take Tylenol or ibuprofen as needed for pain. Recommend to limit Tylenol less than 3 g/day and ibuprofen less than 1200 mg/day. Patient also found to have elevated liver function. Liver ultrasound and MRCP showed dilation of the common bile duct with narrowing of the distal common bile duct. Case discussed in detail with GI. No intervention required. This was likely physiologic as this was unchanged since 2015. Hepatitis panel and HIV panel obtained. This will need to be followed up by her PCP. Recommend to recheck liver function testsCMP in 1 week to monitor progress. Recommend follow-up with GI in 1 to 2 weeks to follow-up his hospitalization to further address. As mentioned above patient will continue with home health and physical therapy at discharge. Fall precautions in place. Diet: AHA Activity: Fall precautions Followup: Robert Santos, DO [Primary Care Provider] - Time spent managing pt's care (in minutes): 55
[2021-03-30] MEDS ORDERED: LIDOCAINE 4% PATCH TOP SCH (09:00)
[2021-04-01 12:11] LABS: HIV AG/AB 4TH GEN Non-reactive (Non-reactive)
[2021-04-01 20:02] LABS: HBsAG Nonreactive (Nonreactive)
== END 2021-03-29 15:45 | disposition home health service (06) | DRG 101 ==
LOC: ER 12:25 → ERHOLD 17:15 → 4TH 20:15 → OBSVTOIN 03-28 15:13
PROVIDERS: ADMIT Family Medicine; ATTEND Family Medicine
DX: R56.9 Unspecified convulsions (principal); S42.201A Unspecified fracture of upper end of right humerus, initial encounter for closed fracture; S32.010A Wedge compression fracture of first lumbar vertebra, initial encounter for closed fracture; F41.8 Other specified anxiety disorders; G62.9 Polyneuropathy, unspecified; G89.29 Other chronic pain; M54.9 Dorsalgia, unspecified; K83.8 Other specified diseases of biliary tract; R51.9 Headache, unspecified; R94.5 Abnormal results of liver function studies; W18.30XA Fall on same level, unspecified, initial encounter; Z90.49 Acquired absence of other specified parts of digestive tract; Z88.5 Allergy status to narcotic agent; Z88.1 Allergy status to other antibiotic agents; Z20.822 Contact with and (suspected) exposure to COVID-19; Z79.82 Long term (current) use of aspirin; Z79.899 Other long term (current) drug therapy
CPT/HCPCS: 36415; 70450; 70496; 70498; 70544; 70549; 70551; 70553; 71045; 72070; 72110; 72125; 74181; 76705; 80048; 80053; 80061; 80074; 80076; 81003; 81015; 82550; 82553; 83735; 83880; 84439; 84443; 84484; 85025; 85610; 87077; 87086; 87088; 87186; 87389; 93005; 93306; 93880; 95816; 96361; 96365; 96375; 97116; 97161; 99285; A9577; G0378; J1650; J1953; J2270; J2405; J3010; J7040; Q9967; U0003

== ENCOUNTER 2022-06-06 11:45 | Day surgery (SDC) | payer MEDICARE ==
[2022-06-06] MEDS ORDERED: Ringers Lactate 1,000 ML IV ONE (12:09)
[2022-06-06] MEDS ORDERED: BUPIVACAINE 0.25% PF 30 ML VIAL ONE (12:37)
[2022-06-06] MEDS ORDERED: LIDOCAINE 1% MPF 30 ML VIAL ONE (12:37)
[2022-06-06] MEDS ORDERED: LIDOCAINE 2% MPF 5 ML VIAL ONE (13:00)
[2022-06-06] MEDS ORDERED: propofoL 200 MG/20 ML VIAL IV ONE ×3 (13:00→13:28)
[2022-06-06] MEDS ORDERED: TRIAMCINOLONE ACETON 40 MG/ML VIAL ONE (13:01)
--- NOTE | 2022-06-06 14:32 | RAD REPORT ---
EXAM DESCRIPTION: RAD - Fluoroscopy <1 Hour - 06/06/2022 1:48 pm CLINICAL HISTORY: JOHN L2-L3, L3-L4 STEROID INJECTION COMPARISON: Liver Only dated 03/28/2021 FINDINGS/IMPRESSION: Single intraoperative fluoroscopic image was submitted showing needles with tip s in the region of the L2-3, L3-4, and L4-5 facets. Chemo dose: 1.86 mGy Fluoro time: 0.2 minutes
[2022-06-06 14:50] VITALS: BP 140/85; TEMP 97.2; O2SAT 98
== END 2022-06-06 14:43 | disposition home or self-care (01) ==
LOC: OR 11:45
PROVIDERS: ATTEND Pain Medicine Interventional Pain Medicine
PROC: 3E0S33Z Introduction of Anti-inflammatory into Epidural Space, Percutaneous Approach (ICD-10-PCS; principal; 2022-06-06 13:15)
DX: M47.816 Spondylosis without myelopathy or radiculopathy, lumbar region (principal)
CPT/HCPCS: 62323; J2704 ×3; J3301; J2001; J7120; 76000

== ENCOUNTER 2023-11-26 23:16 | Emergency (ER) | payer MEDICARE ==
[2023-11-27] MEDS ORDERED: LIDOCAINE 1% MPF 5 ML VIAL ONE (00:02)
[2023-11-27] MEDS ORDERED: TDAP (DIPHTH,PERTUSS(ACELL),TET VAC) 0.5 ML VIAL IMVAC ONE (00:03)
--- NOTE | 2023-11-27 00:51 | ER ---
Nurse's Notes [facility] Name: Krissy Weller Age: 68 yrs Sex: Female : 1955 Arrival Date: 11/26/2023 Time: 23:16 Bed 5 Private MD: Diagnosis: Laceration without foreign body of left middle finger without damage to nail;Laceration without foreign body of left ring finger without damage to nail;Avulsion of left index finger Presentation: 11/25 23:34 Chief complaint: Patient states: pt fell and gabbed katherine sink and has 3 avulsion's to jm12 right 2nd 3rd and 4th finger pads. Coronavirus screen: At this time, unable to obtain information related to travel outside the [place] Ebola Screen: No symptoms or risks identified at this time. Initial Sepsis Screen: Does the patient meet any 2 criteria? No. Patient's initial sepsis screen is negative. Does the patient have a suspected source of infection? No. Patient's initial sepsis screen is negative. Risk Assessment: Do you want to hurt yourself or someone else? Patient reports no desire to harm self or others. Onset of symptoms. Onset of symptoms was November 26, 2023. 23:34 Method Of Arrival: Ambulatory [facility] 23:34 Acuity: RAIZA 4 [facility] 23:35 Chief complaint:. vc1 Triage Assessment: 22:40 Injury Description: Laceration sustained to palmar aspect of distal phalanx of left rg5 ring finger, palmar aspect of distal phalanx of left middle finger and palmar aspect of distal phalanx of left index finger is clean, 0.5 to 2.5 cm long, was sustained 1-2 hours ago. a small amount of bleeding noted at this time. Historical: - Allergies: 23:36 CEPHALOSPORINS; jm12 23:36 Codeine; 12 23:36 HYDROCODONE; 12 - PMHx: 23:36 Atrial fibrillation; Back pain; Congestive heart failure; gastritis; neuropathy; jm12 Pancreatitis; - PSHx: 23:36 Appendectomy; Cholecystectomy; 12 - Immunization history:: Last tetanus immunization: 2013. - Infectious Disease History:: Denies. - Social history:: Smoking status: Patient denies any tobacco usage or history of. Screenin:40 [facility] ED Fall Risk Assessment (Adult) History of falling in the last 3 months, rg5 including since admission No falls in past 3 months (0 pts) Confusion or Disorientation No (0 pts) Intoxicated or Sedated No (0 pts) Impaired Gait No (0 pts) Mobility Assist Device Used No (0 pt) Altered Elimination No (0 pt) Score/Fall Risk Level 0 - 2 = Low Risk Oriented to surroundings, Maintained a safe environment, Educated pt \T\ family on fall prevention, incl call for assistance when getting out of bed, Assessed \T\ reinforced patient's understanding of fall precautions, Provided non-skid footwear, Hourly rounding (assess needs \T\ fall precautionary measures) done, Used ambulatory aids as needed (educated on \T\ assisted with), Used gait belt as appropriate. 23:40 Abuse screen: Denies threats or abuse. Nutritional screening: No deficits noted. rg5 Tuberculosis screening: No symptoms or risk factors identified. Assessment: 23:37 General: Appears in no apparent distress. Behavior is calm, cooperative. Pain: [facility] Complains of pain in right hand. Neuro: No deficits noted. Cardiovascular: No deficits noted. Respiratory: No deficits noted. GI: No deficits noted. No signs and/or symptoms were reported involving the gastrointestinal system. : No deficits noted. No signs and/or symptoms were reported regarding the genitourinary system. EENT: No deficits noted. No signs and/or symptoms were reported regarding the EENT system. Derm: Wound noted right hand. Musculoskeletal: No deficits noted. No signs and/or symptoms reported regarding the musculoskeletal system. 11/26 01:04 Reassessment: Patient and/or family updated on plan of care and expected duration. Pain vc1 level reassessed. Patient is alert, oriented x 3, equal unlabored respirations, skin warm/dry/pink. Patient states feeling better. Patient states symptoms have improved. Vital Signs: 11/25 23:44 BP 143 / 82; Pulse 79; Resp 14; Temp 98; Pulse Ox 99% ; Weight 79.38 kg; Height [address] [facility] in. ; Pain 08/29; 11/26 01:05 BP 138 / 78; Pulse 76; Resp 16; Pulse Ox 99% ; vc1 11/25 23:44 Body Mass Index 31.00 (79.38 kg, 160.02 cm) [facility] 11/25 23:44 Pain Scale: Adult [facility] ED Course: 11/25 22:40 Arm band placed on right wrist. rg5 23:19 Patient arrived in ED. im 23:22 [facility] kb 23:22 Lan Santos MD is Attending Physician. kb 23:36 Triage completed. jm12 11/26 00:16 Jad Velez, RN is Primary Nurse. rg5 00:21 Bed in low position. Call light in reach. Side rails up X 1. rg5 00:21 Assist provider with laceration repair Set up tray. Performed by Yarelis BASS. rg5 01:04 IV discontinued, intact, bleeding controlled, No redness/swelling at site. vc1 01:04 Wound care: to laceration located on palmar aspect of distal phalanx of left index vc1 finger and palmar aspect of distal phalanx of left middle finger and palmar aspect of distal phalanx of left ring finger was dressed with surgicel, non adherent dressing, gauze, shey wrap. Administered Medications: 00:10 Drug: Boostrix Tdap IM 0.5 ml IM once; as a single dose Route: IM; Site: left deltoid; ha1 00:39 Follow up: Response: No adverse reaction rg5 00:35 Drug: Lidocaine Infiltration (1 %) 1 vials 5 ml Infiltration once; to bedside {Note: rg5 administered by Yarelis SANTANA.} Volume: 5 ml; Route: Infiltration; Medication: 00:10 Vaccine Information Statement (VIS) provided today. Questions and/or concerns ha1 addressed. VIS edition date: 2019. Outcome: 00:51 Discharge ordered by . kb 01:03 Discharged to home ambulatory, with significant other, vc1 01:03 Condition: good 01:03 Discharge instructions given to patient, Instructed on discharge instructions, follow up and referral plans. Demonstrated understanding of instructions, follow-up care, 01:06 Patient left the ED. vc1 Signatures: Yarelis Fung FNP-C FNP-Ckb Calcote, Vanessa, RN RN vc1 Lu Garcia RN RN ha1 Gretel Santa Jad Velez, GUILLERMO LI rg5 Marian Oleary RN RN [facility]
--- NOTE | 2023-11-27 00:52 | EDPHYS ---
Physician Documentation [facility] Name: Krissy Weller Age: 68 yrs Sex: Female : 1955 Arrival Date: 11/26/2023 Time: 23:16 Bed 5 Private MD: ED Physician Lan Santos HPI: 11/26 00:06 This 68 yrs old Female presents to ER via Ambulatory with complaints of Finger Injury - kb laceration. 00:06 pt is a 68 year old female who presents for lacerations to index, middle and ring kb fingers on left hand. States she tripped and grabbed the sink to keep from falling and her fingers were cut on a rusted piece of the sink. denies any other injuries. Historical: - Allergies: 11/25 23:36 CEPHALOSPORINS; jm12 23:36 Codeine; jm12 23:36 HYDROCODONE; jm12 - PMHx: 23:36 Atrial fibrillation; Back pain; Congestive heart failure; gastritis; neuropathy; jm12 Pancreatitis; - PSHx: 23:36 Appendectomy; Cholecystectomy; jm12 - Immunization history:: Last tetanus immunization: 2013. - Infectious Disease History:: Denies. - Social history:: Smoking status: Patient denies any tobacco usage or history of. ROS: 11/26 00:05 Constitutional: As per HPI kb Exam: 00:05 Constitutional: This is a well developed, well nourished patient who is awake, alert, kb and in no acute distress. Head/Face: Normocephalic, atraumatic. ENT: Moist Mucous membranes Cardiovascular: Regular rate Respiratory: Respirations even and unlabored. No increased work of breathing. Talking in full sentences Abdomen/GI: Soft, non-tender. No distention MS/ Extremity: Pulses equal, no cyanosis. Neurovascular intact. Full, normal range of motion. Neuro: Awake and alert, GCS 15, oriented to person, place, time, and situation. Moves all extremities. Normal gait. 00:05 Skin: avulsion laceration to pad of second digit, laceration with skin flap to third and fourth digits - left hand. Vital Signs: 11/25 23:44 BP 143 / 82; Pulse 79; Resp 14; Temp 98; Pulse Ox 99% ; Weight 79.38 kg; Height 5 ft. 3 jm12 in. ; Pain 5/10; 11/26 01:05 BP 138 / 78; Pulse 76; Resp 16; Pulse Ox 99% ; vc1 11/25 23:44 Body Mass Index 31.00 (79.38 kg, 160.02 cm) [facility] 11/25 23:44 Pain Scale: Adult [facility] Laceration: 00:48 Wound Repair of 2.5cm ( 1.0in ) subcutaneous laceration to palmar aspect of distal kb phalanx of left middle finger. Irregularly shaped.. Skin/tissue flap noted.. Distal neuro/vascular/tendon intact. Anesthesia: Local anesthetic administered with 2 mls of 1% lidocaine. Wound prep: Extensive cleansing with hibiclenz by me, Wound irrigation with saline by me. Skin closed with 5 5-0 Prolene using simple sutures and sterile technique. Patient tolerated well. 00:48 Wound Repair of 2.5cm ( 1.0in ) subcutaneous laceration to palmar aspect of distal kb phalanx of left ring finger. Irregularly shaped.. Skin/tissue flap noted.. Distal neuro/vascular/tendon intact. Anesthesia: Local anesthetic administered with 2 mls of 1% lidocaine. Wound prep: Extensive cleansing with hibiclenz by me, Wound irrigation with saline by me. Skin closed with 5 5-0 Prolene using simple sutures and sterile technique. Patient tolerated well. MDM: 11/25 23:22 Patient medically screened. kb 11/26 00:06 Data reviewed: vital signs, nurses notes. kb 00:48 Differential diagnosis: superficial laceration, tendon injury, vascular injury. Test kb considered but Not performed: X-ray: x-ray considered but lacerations are superficial, full rom of fingers. Historians other than the Patient: Spouse/Significant Other: . Counseling: I had a detailed discussion with the patient and/or guardian regarding the historical points, exam findings, and any diagnostic results supporting the discharge/admit diagnosis, the need for outpatient follow up, a family practitioner, to return to the emergency department if symptoms worsen or persist or if there are any questions or concerns that arise at home. 11/25 23:36 Order name: Dressing - Wound; Complete Time: 00:39 kb 11/25 23:36 Order name: Gloves, Sterile; Complete Time: 00:40 kb 11/25 23:36 Order name: Prolene, Sutures; Complete Time: 00:40 kb 11/25 23:36 Order name: Setup Suture Tray; Complete Time: 00:40 kb Administered Medications: 00:10 Drug: Boostrix Tdap IM 0.5 ml IM once; as a single dose Route: IM; Site: left deltoid; ha1 00:39 Follow up: Response: No adverse reaction rg5 00:35 Drug: Lidocaine Infiltration (1 %) 1 vials 5 ml Infiltration once; to bedside {Note: rg5 administered by Yarelis DCPKirill} Volume: 5 ml; Route: Infiltration; Disposition Summary: 11/27/23 00:51 Discharge Ordered Condition: Stable kb Diagnosis - Laceration without foreign body of left middle finger without damage to nail kb - Laceration without foreign body of left ring finger without damage to nail kb - Avulsion of left index finger kb Followup: kb - With: Emergency Department - When: As needed - Reason: Worsening of condition Followup: kb - With: Private Physician - When: 2 - 3 days - Reason: Recheck today's complaints, Continuance of care, Re-evaluation by your physician Discharge Instructions: - Discharge Summary Sheet kb - Laceration Care, Adult, [id number] kb Forms: - Medication Reconciliation Form kb - Antibiotic Education kb - Prescription Opioid Use kb - Patient Portal Instructions kb - Leadership Thank You Letter kb Signatures: Yarelis Fung FNP-C FNP-Lu García, RN RN ha1 Jad Velez, RN RN rg5 Marian Oleary RN RN jm12
[2023-11-27 12:33] VITALS: TEMP 98; O2SAT 99
[2023-11-27 12:34] VITALS: BP 138/78
== END 2023-11-27 01:06 | disposition home or self-care (01) ==
LOC: ER 23:16
PROC: 0HQGXZZ Repair Left Hand Skin, External Approach (ICD-10-PCS; principal; 2023-11-27)
DX: S61.213A Laceration without foreign body of left middle finger without damage to nail, initial encounter (principal); S61.215A Laceration without foreign body of left ring finger without damage to nail, initial encounter; S61.201A Unspecified open wound of left index finger without damage to nail, initial encounter
CPT/HCPCS: 12002; J2001